=== PATIENT | male | born 1940 | race Caucasian/White ===

== ENCOUNTER 2016-08-19 07:38 | Day surgery (SDC) | payer MEDICARE, BC ==
[2016-08-19] MEDS ORDERED: fentaNYL 100 MCG/2 ML SDV ONE (08:01)
[2016-08-19] MEDS ORDERED: Propofol 200 MG/20 ML SDV ONE (08:01)
[2016-08-19] MEDS ORDERED: Lactated Ringers 1,000 ML IV SCH (08:15)
[2016-08-19] MEDS ORDERED: Ondansetron 4 MG/2 ML SDV ONE (08:59)
[2016-08-19 10:52] VITALS: BP 128/70
--- NOTE | 2016-08-20 07:31 | OR ---
DATE OF PROCEDURE: 08/19/2016 PREOPERATIVE DIAGNOSES: History of adenomatous colon polyps. POSTOPERATIVE DIAGNOSIS: Diverticulosis, four colon polyps, history of adenomatous colon polyps. PROCEDURE: Colonoscopy to the cecum with biopsy resection of distal transverse colon polyps, splenic flexure colon polyp and snare cautery polypectomy of rectal polyp. ANESTHESIA: IV anesthesia with monitored anesthesia care. INDICATION: This 75-year-old white male is referred for a colonoscopy because of a history of adenomatous colon polyps. His last colonoscopic exam was done about three years ago in [place]. I counseled him for a colonoscopy with possible biopsy and/or polypectomy including risks and alternatives, and he gave his informed consent to proceed. DESCRIPTION OF PROCEDURE: The patient was placed in the left lateral decubitus position. IV anesthesia was administered by the Anesthesia Service. Time-out was held. A rectal exam was performed, which was unremarkable except for an absent prostate. The flexible video Olympus colonoscope was introduced through his anus, up his rectum, and out his colon all the way to the cecum. En route, we saw multiple left-sided diverticula. There was no bleeding or inflammation associated with any of them. Also en route, in the transverse colon, we saw a small polyp, which was removed with the biopsy forceps. The scope was then slowly withdrawn examining the mucosa throughout. In the distal transverse colon, we saw another small polyp which was removed with the biopsy forceps. In the area of the splenic flexure, another small polyp was seen, which was removed with the biopsy forceps. No other additional lesions were noted until we reached the rectum. Here, a larger polyp was seen. This was removed with a snare. This involved placing the snare about its base, elevating it up away from the bowel wall, and applying electrocautery as the polyp was amputated. The polyp was aspirated through the scope and captured in a polyp trap. The scope was retroflexed with the distal rectum appearing unremarkable. The scope was straightened and removed. He tolerated the procedure well. Otilio Alex MD /[id number]
== END 2016-08-19 11:10 | disposition home or self-care (01) ==
LOC: JP.SDS 07:38
PROVIDERS: ATTEND Surgery
PROC: 0DBP8ZZ Excision of Rectum, Via Natural or Artificial Opening Endoscopic (ICD-10-PCS; principal; 2016-08-19)
PROC: 0DBL8ZZ Excision of Transverse Colon, Via Natural or Artificial Opening Endoscopic (ICD-10-PCS; 2016-08-19)
DX: Z86.010 Personal history of colon polyps (principal); K57.30 Diverticulosis of large intestine without perforation or abscess without bleeding; D12.3 Benign neoplasm of transverse colon; D12.7 Benign neoplasm of rectosigmoid junction; D12.4 Benign neoplasm of descending colon
CPT/HCPCS: 45380; 45385; J2405; J2704; J3010; J7120; 88305

== ENCOUNTER 2017-04-05 00:38 | Observation (INO) | payer MEDICARE, BC ==
[2017-04-05] MEDS ORDERED: Acetaminophen 325 MG Tab PO ONE (01:00)
[2017-04-05] MEDS ORDERED: Sodium Chloride 0.9% 1,000 ML IV SCH ×3 (01:00→02:15)
[2017-04-05] MEDS: Sodium Chloride 0.9% 1,000 ML IV SCH ×2 (01:02→04:48)
--- NOTE | 2017-04-05 02:11 | EDM.PDOC ---
ED HPI GENERAL MEDICAL PROBLEM - General Chief Complaint: Fever Stated Complaint: SOB VIA [place] Time Seen by Provider: 04/05/17 02:06 Source of Information: Reports: Patient History Limitations: Reports: No Limitations - History of Present Illness Onset: Today Duration: Hour(s):, Other (shaking chills. ) Location: Reports: Generalized Associated Symptoms: Reports: Fever/Chills, Nausea/Vomiting, Other (Pt developed a sudden onset of shaking chills, sob and body aches. ) Treatments [employer]: Reports: Aspirin, IV/IO, Other (see below) Other Treatments [employer]: zofran Abdomen Pain Score (Numeric/FACES): 1 - Related Data Allergies Allergy/AdvReac Type Severity Reaction Status Date / Time hydromorphone [From Dilaudid] AdvReac Nausea and Verified 04/05/17 01:43 Vomiting morphine AdvReac Nausea and Verified 04/05/17 01:43 Vomiting Home Meds: Home Meds Lisinopril [Prinivil] 20 mg PO BEDTIME 04/10/14 [History] Pantoprazole Sodium [Protonix] 40 mg PO DAILY #30 tablet. 08/27/15 [Rx] metroNIDAZOLE [metroNIDAZOLE 0.75% Gel] 1 dose TOP BID 08/17/16 [History] Potassium Citrate [Potassium Citrate ER] 10 meq PO DAILY 04/05/17 [History] Past Medical History HEENT History: Reports: Cataract, Impaired Vision, Otitis Media, Sinusitis Cardiovascular History: Reports: Hypertension Respiratory History: Reports: None Gastrointestinal History: Reports: Cholelithiasis, Diverticulosis, GERD, Hiatal Hernia Genitourinary History: Reports: Prostate Disorder, Renal Calculus Musculoskeletal History: Reports: None Neurological History: Reports: None Psychiatric History: Reports: None Endocrine/Metabolic History: Reports: Obesity/BMI 30+ Hematologic History: Reports: None Immunologic History: Reports: None Oncologic (Cancer) History: Reports: Basal Cell Carcinoma, Prostate, Other (See Below) Other Oncologic History: skin Dermatologic History: Reports: Benign Melanoma, Melanoma, Other (See Below) Other Dermatologic History: skin ca basal - Infectious Disease History Infectious Disease History: Reports: Chicken Pox, Measles - Past Surgical History HEENT Surgical History: Reports: Cataract Surgery, Other (See Below) Cardiovascular Surgical History: Reports: None Respiratory Surgical History: Reports: None Male Surgical History: Reports: Kidney Stone Extraction, Prostatectomy, Renal Calculus Endocrine Surgical History: Reports: None Neurological Surgical History: Reports: None Musculoskeletal Surgical History: Reports: None Dermatological Surgical History: Reports: Skin Biopsy Social & Family History - Family History Family Medical History: Noncontributory : Reports: Renal Calculus - Tobacco Use Smoking Status *Q: Former Smoker Years of Tobacco use: 25 Packs/Tins Daily: 0.5 Used Tobacco, but Quit: Yes Month Tobacco Last Used: 1987 Second Hand Smoke Exposure: No - Caffeine Use Caffeine Use: Reports: Coffee, Soda - Alcohol Use Days Per Week of Alcohol Use: 5 Number of Drinks Per Day: 1 Total Drinks Per Week: 5 - Recreational Drug Use Recreational Drug Use: No ED ROS GENERAL - Review of Systems Review Of Systems: See Below Constitutional: Reports: Fever, Chills, Malaise HEENT: Reports: No Symptoms Respiratory: Reports: Shortness of Breath Cardiovascular: Reports: No Symptoms Endocrine: Reports: No Symptoms GI/Abdominal: Reports: Nausea, Vomiting : Reports: No Symptoms ED EXAM, SEPSIS - Physical Exam Exam: See Below Text/Narrative:: pt developed a sudden onset of shaking chills sob and generalized weakness. Exam Limited By: No Limitations General Appearance: Alert, Moderate Distress Ears: Normal TMs Nose: Normal Inspection Throat/Mouth: Normal Inspection Head: Atraumatic Neck: Normal Inspection Respiratory/Chest: No Respiratory Distress Cardiovascular: Regular Rate, Rhythm, Tachycardia GI/Abdominal Exam: Soft, Non-Tender (Male) Exam: Deferred Rectal (Males) Exam: Deferred Back: Normal Inspection Extremities: Normal Inspection Neurological: Alert, Oriented, Normal Cognition Psychiatric: Normal Affect Course - Vital Signs Last Recorded V/S: Last Vital Signs Temp 36.7 C 04/05/17 12:00 Pulse 62 04/05/17 16:00 Resp 18 04/05/17 16:00 BP 86/58 L 04/05/17 16:00 Pulse Ox 97 04/05/17 12:00 - Orders/Labs/Meds Orders: Active Orders 24 hr Category Date Time Status Chest 1V Frontal [CR] Stat Exams 04/05/17 00:52 Taken CULTURE BLOOD [BC] Urgent Lab 04/05/17 01:02 Results CULTURE BLOOD [BC] Urgent Lab 04/05/17 01:02 Results CULTURE URINE [RM] Stat Lab 04/05/17 03:49 Received Blood Culture x2 Reflex Set [OM.PC] Urgent Oth 04/05/17 00:49 Ordered Medication Orders Acetaminophen (Tylenol) 650 mg PO Q6H PRN PRN Reason: Abdominal Pain Heparin Sodium (Porcine) (Heparin Sodium) 5,000 units SUBCUT Q8H [facility] Last Admin: 04/05/17 13:08 Dose: 5,000 units Piperacillin/Tazobactam/ (Dextrose 3.375 gm/ Premix) 50 mls @ 100 mls/hr IV Q6H [facility] Last Admin: 04/05/17 17:45 Dose: 100 mls/hr Admin: 04/05/17 12:15 Dose: 100 mls/hr Influenza Virus Vaccine (Fluzone High-Dose ) 180 mcg IM .ONCE ONE Stop: 04/06/17 11:01 Iopamidol (Isovue-300 (61%)) 150 ml IV . DIRECTED PRN PRN Reason: RADIOLOGY EXAM Stop: 04/06/17 04:45 Last Admin: 04/05/17 05:06 Dose: 150 ml Ondansetron HCl (Zofran) 4 mg IV Q4H PRN PRN Reason: Nausea/Vomiting Pantoprazole Sodium (Protonix) 40 mg PO ACBREAKFAST [facility] Senna/Docusate Sodium (Senna Plus) 1 tab PO BID PRN PRN Reason: Constipation Sodium Chloride (Saline Flush) 10 ml FLUSH ONETIME PRN PRN Reason: per radiology protocol Last Admin: 04/05/17 13:09 Dose: 10 ml Admin: 04/05/17 05:06 Dose: 10 ml Labs: Laboratory Tests 04/05/17 04/05/17 04/05/17 Range/Units 01:00 01:02 01:02 WBC 7.7 (4.5-11.0) K/uL RBC 4.92 (4.30-5.90) M/uL Hgb 15.4 H (12.0-15.0) g/dL Hct 46.8 (40.0-54.0) % MCV 95 (80-98) fL MCH 31 (27-31) pg MCHC 33 (32-36) % Plt Count 168 (150-400) K/uL Neut % (Auto) 96 H (36-66) % Lymph % (Auto) 2 L (24-44) % [place] % (Auto) 2 (2-6) % Eos % (Auto) 0 L (2-4) % Baso % (Auto) 0 (0-1) % Puncture Site Rt brachial ABG pH 7.462 H (7.350-7.450) ABG pCO2 29.0 L (35.0-42.0) mmHg ABG pO2 81.2 (75.0-100.0) mmHg ABG HCO3 20.4 L (22.0-26.0) mmol/L ABG Total CO2 17.5 L (23.0-27.0) mmol/L ABG O2 Saturation 97.0 (95.0-98.0) % ABG O2 Content 19.9 (15.0-23.0) %vol ABG Base Excess -1.7 mm/L ABG Hemoglobin 14.8 (13.5-18.0) g/dL ABG Oxyhemoglobin 95.4 % ABG Carboxyhemoglobin 1.1 (0.0-1.6) % ABG Methemoglobin 0.6 % Huy Test Not performed O2 Delivery Device Room air Sodium 144 (140-148) mmol/L Potassium 4.4 (3.6-5.2) mmol/L Chloride 109 H (100-108) mmol/L Carbon Dioxide 26 (21-32) mmol/L Anion Gap 13.4 (5.0-14.0) mmol/L BUN 19 H (7-18) mg/dL Creatinine 1.3 (0.8-1.3) mg/dL Est Cr Clr Drug Dosing 58.68 mL/min Estimated GFR (MDRD) 54 L (>60) Glucose 128 H (74-106) mg/dL Lactic Acid (0.4-2.0) mmol/L Calcium 8.2 L (8.5-10.1) mg/dL Total Bilirubin 0.6 (0.2-1.0) mg/dL AST 147 H D (15-37) U/L ALT 162 H (12-78) U/L Alkaline Phosphatase 122 H (46-116) U/L NT-Pro-B Natriuret Pep (5-450) pg/mL Total Protein 6.2 L (6.4-8.2) g/dL Albumin 3.0 L (3.4-5.0) g/dL Globulin 3.2 (2.3-3.5) g/dL Albumin/Globulin Ratio 0.9 L (1.2-2.2) Lipase (73-393) U/L Urine Color Urine Appearance Urine pH (4.5-8.0) Ur Specific [place] (1.008-1.030) Urine Protein (NEGATIVE) mg/dL Urine Glucose (UA) (NEGATIVE) mg/dL Urine Ketones (NEGATIVE) mg/dL Urine Occult Blood (NEGATIVE) Urine Nitrite (NEGAITVE) Urine Bilirubin (NEGATIVE) Urine Urobilinogen (NORMAL) mg/dL Ur Leukocyte Esterase (NEGATIVE) Urine RBC (0-5) Urine WBC (0-5) Ur Epithelial Cells Amorphous Sediment Urine Bacteria Urine Mucus 04/05/17 04/05/17 04/05/17 Range/Units 01:02 01:52 02:13 WBC (4.5-11.0) K/uL RBC (4.30-5.90) M/uL Hgb (12.0-15.0) g/dL Hct (40.0-54.0) % MCV (80-98) fL MCH (27-31) pg MCHC (32-36) % Plt Count (150-400) K/uL Neut % (Auto) (36-66) % Lymph % (Auto) (24-44) % [place] % (Auto) (2-6) % Eos % (Auto) (2-4) % Baso % (Auto) (0-1) % Puncture Site ABG pH (7.350-7.450) ABG pCO2 (35.0-42.0) mmHg ABG pO2 (75.0-100.0) mmHg ABG HCO3 (22.0-26.0) mmol/L ABG Total CO2 (23.0-27.0) mmol/L ABG O2 Saturation (95.0-98.0) % ABG O2 Content (15.0-23.0) %vol ABG Base Excess mm/L ABG Hemoglobin (13.5-18.0) g/dL ABG Oxyhemoglobin % ABG Carboxyhemoglobin (0.0-1.6) % ABG Methemoglobin % Huy Test O2 Delivery Device Sodium (140-148) mmol/L Potassium (3.6-5.2) mmol/L Chloride (100-108) mmol/L Carbon Dioxide (21-32) mmol/L Anion Gap (5.0-14.0) mmol/L BUN (7-18) mg/dL Creatinine (0.8-1.3) mg/dL Est Cr Clr Drug Dosing mL/min Estimated GFR (MDRD) (>60) Glucose (74-106) mg/dL Lactic Acid 2.0 (0.4-2.0) mmol/L Calcium (8.5-10.1) mg/dL Total Bilirubin (0.2-1.0) mg/dL AST (15-37) U/L ALT (12-78) U/L Alkaline Phosphatase (46-116) U/L NT-Pro-B Natriuret Pep 65 (5-450) pg/mL Total Protein (6.4-8.2) g/dL Albumin (3.4-5.0) g/dL Globulin (2.3-3.5) g/dL Albumin/Globulin Ratio (1.2-2.2) Lipase (73-393) U/L Urine Color Yellow Urine Appearance Clear Urine pH 5.0 (4.5-8.0) Ur Specific [place] 1.015 (1.008-1.030) Urine Protein Negative (NEGATIVE) mg/dL Urine Glucose (UA) Normal (NEGATIVE) mg/dL Urine Ketones Negative (NEGATIVE) mg/dL Urine Occult Blood Negative (NEGATIVE) Urine Nitrite Negative (NEGAITVE) Urine Bilirubin Negative (NEGATIVE) Urine Urobilinogen Normal (NORMAL) mg/dL Ur Leukocyte Esterase Negative (NEGATIVE) Urine RBC Not seen (0-5) Urine WBC 0-5 (0-5) Ur Epithelial Cells Not seen Amorphous Sediment Not seen Urine Bacteria Not seen Urine Mucus Few 04/05/17 Range/Units 02:53 WBC (4.5-11.0) K/uL RBC (4.30-5.90) M/uL Hgb (12.0-15.0) g/dL Hct (40.0-54.0) % MCV (80-98) fL MCH (27-31) pg MCHC (32-36) % Plt Count (150-400) K/uL Neut % (Auto) (36-66) % Lymph % (Auto) (24-44) % [place] % (Auto) (2-6) % Eos % (Auto) (2-4) % Baso % (Auto) (0-1) % Puncture Site ABG pH (7.350-7.450) ABG pCO2 (35.0-42.0) mmHg ABG pO2 (75.0-100.0) mmHg ABG HCO3 (22.0-26.0) mmol/L ABG Total CO2 (23.0-27.0) mmol/L ABG O2 Saturation (95.0-98.0) % ABG O2 Content (15.0-23.0) %vol ABG Base Excess mm/L ABG Hemoglobin (13.5-18.0) g/dL ABG Oxyhemoglobin % ABG Carboxyhemoglobin (0.0-1.6) % ABG Methemoglobin % Huy Test O2 Delivery Device Sodium (140-148) mmol/L Potassium (3.6-5.2) mmol/L Chloride (100-108) mmol/L Carbon Dioxide (21-32) mmol/L Anion Gap (5.0-14.0) mmol/L BUN (7-18) mg/dL Creatinine (0.8-1.3) mg/dL Est Cr Clr Drug Dosing mL/min Estimated GFR (MDRD) (>60) Glucose (74-106) mg/dL Lactic Acid (0.4-2.0) mmol/L Calcium (8.5-10.1) mg/dL Total Bilirubin (0.2-1.0) mg/dL AST (15-37) U/L ALT (12-78) U/L Alkaline Phosphatase (46-116) U/L NT-Pro-B Natriuret Pep (5-450) pg/mL Total Protein (6.4-8.2) g/dL Albumin (3.4-5.0) g/dL Globulin (2.3-3.5) g/dL Albumin/Globulin Ratio (1.2-2.2) Lipase 91 (73-393) U/L Urine Color Urine Appearance Urine pH (4.5-8.0) Ur Specific [place] (1.008-1.030) Urine Protein (NEGATIVE) mg/dL Urine Glucose (UA) (NEGATIVE) mg/dL Urine Ketones (NEGATIVE) mg/dL Urine Occult Blood (NEGATIVE) Urine Nitrite (NEGAITVE) Urine Bilirubin (NEGATIVE) Urine Urobilinogen (NORMAL) mg/dL Ur Leukocyte Esterase (NEGATIVE) Urine RBC (0-5) Urine WBC (0-5) Ur Epithelial Cells Amorphous Sediment Urine Bacteria Urine Mucus Meds: Medications Generic Name Dose Route Start Last Admin Trade Name Brittani PRN Reason Stop Dose Admin Acetaminophen 650 mg 04/05/17 04:26 Tylenol PO Q6H PRN Abdominal Pain Heparin Sodium (Porcine) 5,000 units 04/05/17 14:00 04/05/17 13:08 Heparin Sodium SUBCUT 5,000 units Q8H REGGIE Administration Piperacillin/Tazobactam/ 50 mls @ 100 mls/hr 04/05/17 12:00 04/05/17 17:45 Dextrose 3.375 gm/ Premix IV 100 mls/hr Q6H REGGIE Administration Influenza Virus Vaccine 180 mcg 04/06/17 11:00 Fluzone High-Dose 2017-18 IM 04/06/17 11:01 .ONCE ONE Iopamidol 150 ml 04/05/17 04:44 04/05/17 05:06 Isovue-300 (61%) IV 04/06/17 04:45 150 ml . DIRECTED PRN Administration RADIOLOGY EXAM Ondansetron HCl 4 mg 04/05/17 04:03 Zofran IV Q4H PRN Nausea/Vomiting Pantoprazole Sodium 40 mg 04/06/17 07:30 Protonix PO ACBREAKFAST REGGIE Senna/Docusate Sodium 1 tab 04/05/17 04:03 Senna Plus PO BID PRN Constipation Sodium Chloride 10 ml 04/05/17 04:44 04/05/17 13:09 Saline Flush FLUSH 10 ml ONETIME PRN Administration per radiology protocol Discontinued Medications Generic Name Dose Route Start Last Admin Trade Name Brittani PRN Reason Stop Dose Admin Acetaminophen 1,000 mg 04/05/17 01:00 04/05/17 01:06 Tylenol PO 04/05/17 01:01 1,000 mg NOW ONE Administration Heparin Sodium (Porcine) 5,000 units 04/05/17 05:00 04/05/17 06:09 Heparin Sodium SUBCUT 5,000 units Q8H REGGIE Administration Hydromorphone HCl 0.5 mg 04/05/17 04:29 Dilaudid IVPUSH Q4H PRN Pain (moderate 4-6) Sodium Chloride 1,000 mls @ 150 mls/hr 04/05/17 01:00 04/05/17 04:48 Normal Saline IV 150 mls/hr ASDIRECTED REGGIE Administration Sodium Chloride 1,000 mls @ 999 mls/hr 04/05/17 01:00 04/05/17 01:03 Normal Saline IV 999 mls/hr ASDIRECTED REGGIE Administration Sodium Chloride 1,000 mls @ 500 mls/hr 04/05/17 02:15 04/05/17 02:09 Normal Saline IV 500 mls/hr ASDIRECTED REGGIE Administration Sodium Chloride 1,000 mls @ 500 mls/hr 04/05/17 02:15 Normal Saline IV ASDIRECTED REGGIE Piperacillin Sod/Tazobactam 50 mls @ 100 mls/hr 04/05/17 03:00 04/05/17 11:57 Sod 3.375 gm/ Sodium Chloride IV Not Given Q6H REGGIE Ciprofloxacin/Dextrose 400 mg/ 200 mls @ 200 mls/hr 04/05/17 05:00 04/05/17 06:09 Premix IV 200 mls/hr Q12H REGGIE Administration Metronidazole 500 mg/ Premix 100 mls @ 100 mls/hr 04/05/17 12:00 IV Q8H REGGIE Metronidazole 500 mg/ Premix 100 mls @ 100 mls/hr 04/05/17 05:00 04/05/17 04: 46 IV 04/05/17 05:59 100 mls/hr ONETIME ONE Administration Sodium Chloride 85 mls @ 3.5 mls/sec 04/05/17 04:45 04/05/17 05:06 Normal Saline IV 04/05/17 10:00 3.5 mls/sec ASDIRECTED REGGIE Administration Influenza Virus Vaccine 1 each 04/06/17 09:00 Pharmacy To Dose - Influenza Vaccine IM 04/06/17 09:01 ONETIME ONE Influenza Virus Vaccine 180 mcg 04/05/17 10:00 04/05/17 14:03 Fluzone High-Dose 2017-18 IM 04/05/17 10:01 Not Given .ONCE ONE Morphine Sulfate 2 mg 04/05/17 04:03 Morphine IVPUSH Q2H PRN Pain (severe 7-10) Pantoprazole Sodium 40 mg 04/05/17 07:30 04/05/17 08:55 Protonix Iv IVPUSH 40 mg ACBREAKFAST REGGIE Administration - Re-Assessments/Exams Free Text/Narrative Re-Assessment/Exam: 04/05/17 02:55 pt did not hav a infected urine. His wbc is wnl. Departure - Departure Time of Disposition: 16:00 Disposition: Refer to Observation Condition: Fair Clinical Impression: Sepsis, Elevated liver enzymes - Discharge Information - My Orders Last 24 Hours: My Active Orders 04/05/17 00:49 Blood Culture x2 Reflex Set [OM.PC] Urgent 04/05/17 00:52 Chest 1V Frontal [CR] Stat 04/05/17 01:02 CULTURE BLOOD [BC] Urgent CULTURE BLOOD [BC] Urgent 04/05/17 03:49 CULTURE URINE [RM] Stat - Assessment/Plan Last 24 Hours: My Active Orders 04/05/17 00:49 Blood Culture x2 Reflex Set [OM.PC] Urgent 04/05/17 00:52 Chest 1V Frontal [CR] Stat 04/05/17 01:02 CULTURE BLOOD [BC] Urgent CULTURE BLOOD [BC] Urgent 04/05/17 03:49 CULTURE URINE [RM] Stat
[2017-04-05] MEDS: Piperacillin/Tazobactam 3.375 GM in Sodium Chloride 0.9% 50 ML IV SCH ×2 (03:16→11:57)
[2017-04-05] MEDS ORDERED: Morphine 2 MG/ML Syringe IVPUSH PRN (04:03)
[2017-04-05] MEDS ORDERED: Ondansetron 4 MG/2 ML SDV IV PRN (04:03)
[2017-04-05] MEDS ORDERED: Acetaminophen 325 MG Tab PO PRN (04:26)
--- NOTE | 2017-04-05 04:26 | PCM.HP ---
H&P History of Present Illness - General Date of Service: 04/05/17 Admit Problem/Dx: Admission Diagnosis/Problem Admission Diagnosis/Problem Abdominal pain Source of Information: Patient History Limitations: Reports: No Limitations - History of Present Illness Initial Comments - Free Text/Narative: 75-year-old male with past medical history of hypertension on lisinopril medication, potassium supplementation, recurrent right upper quadrant pain status post cholecystectomy 18 months ago, GERD came to the ER with the complaining of epigastric pain which started6 PM yesterday. Patient states that the pain was 7-8/10 in intensity, patient took oxycodone medication which helped him. Patient reports that he has nausea, associated with 2 episodes of vomiting and fever associated with the chills.With these complaints patient came to the ER. In the ER patient had lab test, x-ray which showed lactic acid 2.0 and the chest x-ray is within normal limits. Patient denies any chest pain , breathing difficulty, headaches, dizziness, lightheadedness, palpitations, orthopnea, PND or pedal edema. Patient is a nonsmoker. Patient reports that he has recurrent right upper quadrant and epigastric pains every 15-20 days since the surgery. Patient denies any blood in the stool, or disturbance in bowel, urinary habits. Patient diagnosed as SIRS and suspected sepsis received fluid resuscitation in the ED and admitted as observation status. Patient CODE STATUS is full code. Other review of systems are not significant - Related Data Allergies/Adverse Reactions: Allergies Allergy/AdvReac Type Severity Reaction Status Date / Time hydromorphone [From Dilaudid] AdvReac Nausea and Verified 04/05/17 01:43 Vomiting morphine AdvReac Nausea and Verified 04/05/17 01:43 Vomiting Home Medications: Home Meds Lisinopril [Prinivil] 20 mg PO BEDTIME 04/10/14 [History] Pantoprazole Sodium [Protonix] 40 mg PO DAILY #30 tablet. 08/27/15 [Rx] metroNIDAZOLE [metroNIDAZOLE 0.75% Gel] 1 dose TOP BID 08/17/16 [History] Potassium Citrate [Potassium Citrate ER] 10 meq PO DAILY 04/05/17 [History] Past Medical History HEENT History: Reports: Cataract, Impaired Vision, Otitis Media, Sinusitis Cardiovascular History: Reports: Hypertension Respiratory History: Reports: None Gastrointestinal History: Reports: Cholelithiasis, Diverticulosis, GERD, Hiatal Hernia Genitourinary History: Reports: Prostate Disorder, Renal Calculus Musculoskeletal History: Reports: None Neurological History: Reports: None Psychiatric History: Reports: None Endocrine/Metabolic History: Reports: Obesity/BMI 30+ Hematologic History: Reports: None Immunologic History: Reports: None Oncologic (Cancer) History: Reports: Basal Cell Carcinoma, Prostate, Other (See Below) Other Oncologic History: skin Dermatologic History: Reports: Benign Melanoma, Melanoma, Other (See Below) Other Dermatologic History: skin ca basal - Infectious Disease History Infectious Disease History: Reports: Chicken Pox, Measles - Past Surgical History HEENT Surgical History: Reports: Cataract Surgery, Other (See Below) Cardiovascular Surgical History: Reports: None Respiratory Surgical History: Reports: None Male Surgical History: Reports: Kidney Stone Extraction, Prostatectomy, Renal Calculus Endocrine Surgical History: Reports: None Neurological Surgical History: Reports: None Musculoskeletal Surgical History: Reports: None Dermatological Surgical History: Reports: Skin Biopsy Social & Family History - Family History Family Medical History: Noncontributory : Reports: Renal Calculus - Tobacco Use Smoking Status *Q: Former Smoker Years of Tobacco use: 25 Packs/Tins Daily: 0.5 Used Tobacco, but Quit: Yes Month Tobacco Last Used: 1987 Second Hand Smoke Exposure: No - Caffeine Use Caffeine Use: Reports: Coffee, Soda - Alcohol Use Days Per Week of Alcohol Use: 5 Number of Drinks Per Day: 1 Total Drinks Per Week: 5 - Recreational Drug Use Recreational Drug Use: No H&P Review of Systems - Review of Systems: Review Of Systems: See Below General: Reports: Fever, Chills, Malaise HEENT: Denies: Contact Lenses, Dysphasia, Ear Pain Pulmonary: Denies: Shortness of Breath, Wheezing Cardiovascular: Denies: Chest Pain, Palpitations, Dyspnea on Exertion Gastrointestinal: Reports: Abdominal Pain, Nausea, Vomiting. Denies: Anorexia, Black Stool, Bloody Stool, Constipation, Diarrhea, Difficulty Swallowing, Distension, Melena Genitourinary: Denies: Dysuria, Frequency, Burning Musculoskeletal: Denies: Neck Pain, Shoulder Pain Skin: Denies: Cyanosis, Jaundice Psychiatric: Denies: Confusion, Depression, Mood Lability Neurological: Denies: Confusion, Dizziness, Headache Hematologic/Lymphatic: Denies: Anemia, Easy Bleeding Exam - Exam Exam: See Below - Vital Signs Vital Signs: Last Vital Signs Temp 36.6 C 04/05/17 04:06 Pulse 98 04/05/17 04:06 Resp 14 04/05/17 04:06 BP 142/76 H 04/05/17 04:06 Pulse Ox 95 04/05/17 04:06 Weight: 113.398 kg - Exam General: Alert, Oriented Neck: Supple Lungs: Clear to Auscultation, Normal Respiratory Effort Cardiovascular: Regular Rate, Regular Rhythm, Normal S1, Normal S2 GI/Abdominal Exam: Normal Bowel Sounds, Soft, No Distention. No: Non-Tender, Distended, Guarding, Rigid, Rebound (Male) Exam: No Hernia Rectal (Males) Exam: Normal Exam, Normal Rectal Tone Back Exam: Normal Inspection, Full Range of Motion Extremities: Normal Inspection, Normal Range of Motion Skin: Warm, Intact Neurological: Cranial Nerves Intact Neuro Extensive - Mental Status: Alert, Oriented x3 Psychiatric: Alert, Normal Affect - Patient Data Lab Results Last 24 hrs: Laboratory Results - last 24 hr 04/05/17 04/05/17 04/05/17 Range/Units 01:00 01:02 01:02 WBC 7.7 (4.5-11.0) K/uL RBC 4.92 (4.30-5.90) M/uL Hgb 15.4 H (12.0-15.0) g/dL Hct 46.8 (40.0-54.0) % MCV 95 (80-98) fL MCH 31 (27-31) pg MCHC 33 (32-36) % Plt Count 168 (150-400) K/uL Neut % (Auto) 96 H (36-66) % Lymph % (Auto) 2 L (24-44) % [place] % (Auto) 2 (2-6) % Eos % (Auto) 0 L (2-4) % Baso % (Auto) 0 (0-1) % Puncture Site Rt brachial ABG pH 7.462 H (7.350-7.450) ABG pCO2 29.0 L (35.0-42.0) mmHg ABG pO2 81.2 (75.0-100.0) mmHg ABG HCO3 20.4 L (22.0-26.0) mmol/L ABG Total CO2 17.5 L (23.0-27.0) mmol/L ABG O2 Saturation 97.0 (95.0-98.0) % ABG O2 Content 19.9 (15.0-23.0) %vol ABG Base Excess -1.7 mm/L ABG Hemoglobin 14.8 (13.5-18.0) g/dL ABG Oxyhemoglobin 95.4 % ABG Carboxyhemoglobin 1.1 (0.0-1.6) % ABG Methemoglobin 0.6 % Huy Test Not performed O2 Delivery Device Room air Sodium 144 (140-148) mmol/L Potassium 4.4 (3.6-5.2) mmol/L Chloride 109 H (100-108) mmol/L Carbon Dioxide 26 (21-32) mmol/L Anion Gap 13.4 (5.0-14.0) mmol/L BUN 19 H (7-18) mg/dL Creatinine 1.3 (0.8-1.3) mg/dL Est Cr Clr Drug Dosing 58.68 mL/min Estimated GFR (MDRD) 54 L (>60) Glucose 128 H (74-106) mg/dL Lactic Acid (0.4-2.0) mmol/L Calcium 8.2 L (8.5-10.1) mg/dL Total Bilirubin 0.6 (0.2-1.0) mg/dL AST 147 H D (15-37) U/L ALT 162 H (12-78) U/L Alkaline Phosphatase 122 H (46-116) U/L NT-Pro-B Natriuret Pep (5-450) pg/mL Total Protein 6.2 L (6.4-8.2) g/dL Albumin 3.0 L (3.4-5.0) g/dL Globulin 3.2 (2.3-3.5) g/dL Albumin/Globulin Ratio 0.9 L (1.2-2.2) Lipase (73-393) U/L Urine Color Urine Appearance Urine pH (4.5-8.0) Ur Specific [place] (1.008-1.030) Urine Protein (NEGATIVE) mg/dL Urine Glucose (UA) (NEGATIVE) mg/dL Urine Ketones (NEGATIVE) mg/dL Urine Occult Blood (NEGATIVE) Urine Nitrite (NEGAITVE) Urine Bilirubin (NEGATIVE) Urine Urobilinogen (NORMAL) mg/dL Ur Leukocyte Esterase (NEGATIVE) Urine RBC (0-5) Urine WBC (0-5) Ur Epithelial Cells Amorphous Sediment Urine Bacteria Urine Mucus 04/05/17 04/05/17 04/05/17 Range/Units 01:02 01:52 02:13 WBC (4.5-11.0) K/uL RBC (4.30-5.90) M/uL Hgb (12.0-15.0) g/dL Hct (40.0-54.0) % MCV (80-98) fL MCH (27-31) pg MCHC (32-36) % Plt Count (150-400) K/uL Neut % (Auto) (36-66) % Lymph % (Auto) (24-44) % [place] % (Auto) (2-6) % Eos % (Auto) (2-4) % Baso % (Auto) (0-1) % Puncture Site ABG pH (7.350-7.450) ABG pCO2 (35.0-42.0) mmHg ABG pO2 (75.0-100.0) mmHg ABG HCO3 (22.0-26.0) mmol/L ABG Total CO2 (23.0-27.0) mmol/L ABG O2 Saturation (95.0-98.0) % ABG O2 Content (15.0-23.0) %vol ABG Base Excess mm/L ABG Hemoglobin (13.5-18.0) g/dL ABG Oxyhemoglobin % ABG Carboxyhemoglobin (0.0-1.6) % ABG Methemoglobin % Huy Test O2 Delivery Device Sodium (140-148) mmol/L Potassium (3.6-5.2) mmol/L Chloride (100-108) mmol/L Carbon Dioxide (21-32) mmol/L Anion Gap (5.0-14.0) mmol/L BUN (7-18) mg/dL Creatinine (0.8-1.3) mg/dL Est Cr Clr Drug Dosing mL/min Estimated GFR (MDRD) (>60) Glucose (74-106) mg/dL Lactic Acid 2.0 (0.4-2.0) mmol/L Calcium (8.5-10.1) mg/dL Total Bilirubin (0.2-1.0) mg/dL AST (15-37) U/L ALT (12-78) U/L Alkaline Phosphatase (46-116) U/L NT-Pro-B Natriuret Pep 65 (5-450) pg/mL Total Protein (6.4-8.2) g/dL Albumin (3.4-5.0) g/dL Globulin (2.3-3.5) g/dL Albumin/Globulin Ratio (1.2-2.2) Lipase (73-393) U/L Urine Color Yellow Urine Appearance Clear Urine pH 5.0 (4.5-8.0) Ur Specific [place] 1.015 (1.008-1.030) Urine Protein Negative (NEGATIVE) mg/dL Urine Glucose (UA) Normal (NEGATIVE) mg/dL Urine Ketones Negative (NEGATIVE) mg/dL Urine Occult Blood Negative (NEGATIVE) Urine Nitrite Negative (NEGAITVE) Urine Bilirubin Negative (NEGATIVE) Urine Urobilinogen Normal (NORMAL) mg/dL Ur Leukocyte Esterase Negative (NEGATIVE) Urine RBC Not seen (0-5) Urine WBC 0-5 (0-5) Ur Epithelial Cells Not seen Amorphous Sediment Not seen Urine Bacteria Not seen Urine Mucus Few 04/05/17 Range/Units 02:53 WBC (4.5-11.0) K/uL RBC (4.30-5.90) M/uL Hgb (12.0-15.0) g/dL Hct (40.0-54.0) % MCV (80-98) fL MCH (27-31) pg MCHC (32-36) % Plt Count (150-400) K/uL Neut % (Auto) (36-66) % Lymph % (Auto) (24-44) % [place] % (Auto) (2-6) % Eos % (Auto) (2-4) % Baso % (Auto) (0-1) % Puncture Site ABG pH (7.350-7.450) ABG pCO2 (35.0-42.0) mmHg ABG pO2 (75.0-100.0) mmHg ABG HCO3 (22.0-26.0) mmol/L ABG Total CO2 (23.0-27.0) mmol/L ABG O2 Saturation (95.0-98.0) % ABG O2 Content (15.0-23.0) %vol ABG Base Excess mm/L ABG Hemoglobin (13.5-18.0) g/dL ABG Oxyhemoglobin % ABG Carboxyhemoglobin (0.0-1.6) % ABG Methemoglobin % Huy Test O2 Delivery Device Sodium (140-148) mmol/L Potassium (3.6-5.2) mmol/L Chloride (100-108) mmol/L Carbon Dioxide (21-32) mmol/L Anion Gap (5.0-14.0) mmol/L BUN (7-18) mg/dL Creatinine (0.8-1.3) mg/dL Est Cr Clr Drug Dosing mL/min Estimated GFR (MDRD) (>60) Glucose (74-106) mg/dL Lactic Acid (0.4-2.0) mmol/L Calcium (8.5-10.1) mg/dL Total Bilirubin (0.2-1.0) mg/dL AST (15-37) U/L ALT (12-78) U/L Alkaline Phosphatase (46-116) U/L NT-Pro-B Natriuret Pep (5-450) pg/mL Total Protein (6.4-8.2) g/dL Albumin (3.4-5.0) g/dL Globulin (2.3-3.5) g/dL Albumin/Globulin Ratio (1.2-2.2) Lipase 91 (73-393) U/L Urine Color Urine Appearance Urine pH (4.5-8.0) Ur Specific [place] (1.008-1.030) Urine Protein (NEGATIVE) mg/dL Urine Glucose (UA) (NEGATIVE) mg/dL Urine Ketones (NEGATIVE) mg/dL Urine Occult Blood (NEGATIVE) Urine Nitrite (NEGAITVE) Urine Bilirubin (NEGATIVE) Urine Urobilinogen (NORMAL) mg/dL Ur Leukocyte Esterase (NEGATIVE) Urine RBC (0-5) Urine WBC (0-5) Ur Epithelial Cells Amorphous Sediment Urine Bacteria Urine Mucus Result Diagrams: 04/05/17 01:02 04/05/17 01:02 [place] Results Last 24 hrs: Microbiology 04/05/17 01:11 Influenza Type A Antigen Screen - Final Nasopharyngeal Swab - Nare, Right NEGATIVE INFLUENZA A VIRUS AG Influenza Type B Antigen Screen - Final NEGATIVE INFLUENZA B VIRUS AG *Q Meaningful Use (ADM) - VTE *Q VTE Criteria *Q: - Stroke *Q Stroke Criteria *Q: - AMI *Q AMI Criteria *Q: - Problem List (1) Abdominal pain SNOMED Code(s): 35913050 ICD Code: R10.9 - UNSPECIFIED ABDOMINAL PAIN Status: Acute Current Visit : Yes (2) SIRS (systemic inflammatory response syndrome) SNOMED Code(s): 962264486 ICD Code: R65.10 - SIRS OF NON-INFECTIOUS ORIGIN W/O ACUTE ORGAN DYSFUNCTION Status: Acute Current Visit: Yes (3) Fever and chills SNOMED Code(s): 325708002 ICD Code: R50.9 - FEVER, UNSPECIFIED Status: Acute Current Visit: Yes (4) S/P hernia repair SNOMED Code(s): 11688635832811 ICD Code: Z98.89 - OTHER SPECIFIED POSTPROCEDURAL STATES * DO NOT USE *; Z87.19 - PERSONAL HISTORY OF OTHER DISEASES OF THE DIGESTIVE SYSTEM Status: Acute Current Visit: No (5) Status post laparoscopic cholecystectomy SNOMED Code(s): 349363220, 760771503 ICD Code: Z90.49 - ACQUIRED ABSENCE OF OTHER SPECIFIED PARTS OF DIGESTIVE TRACT Status: Acute Current Visit: No (6) Hypertension SNOMED Code(s): 94295707 ICD Code: I10 - ESSENTIAL (PRIMARY) HYPERTENSION Status: Chronic Current Visit: No Qualifiers: Hypertension type: essential hypertension Qualified Code(s): I10 - Essential (primary) hypertension Problem List Initiated/Reviewed/Updated: Yes Orders Last 24hrs: Active Orders 24 hr Category Date Time Status Patient Status [ADT] Routine ADT 04/05/17 04:03 Ordered EKG Documentation Completion [RC] ASDIRECTED Care 04/05/17 04:11 Ordered Oxygen Therapy [RC] PRN Care 04/05/17 04:03 Ordered Pulse Oximetry [RC] CONTINUOUS Care 04/05/17 04:05 Ordered VTE/DVT Education [RC] Per Unit Routine Care 04/05/17 04:03 Ordered Vital Signs [RC] Q4H Care 04/05/17 04:03 Ordered Nothing per Oral Now Diet [DIET] Diet 04/05/17 Breakfast Ordered Abdomen Pelvis w Cont [CT] Stat Exams 04/05/17 04:19 Ordered CTA Abd Pelv w Cont [CT] Stat Exams 04/05/17 04:18 Stop Req Chest 1V Frontal [CR] Stat Exams 04/05/17 00:52 Taken CBC WITH AUTO DIFF [HEME] AM Lab 04/05/17 05:11 Ordered COMPREHENSIVE METABOLIC PN,CMP [CHEM] AM Lab 04/05/17 05:11 Ordered CULTURE BLOOD [BC] Urgent Lab 04/05/17 01:02 Received CULTURE BLOOD [BC] Urgent Lab 04/05/17 01:02 Received CULTURE URINE [RM] Stat Lab 04/05/17 03:49 Received MAGNESIUM [CHEM] Stat Lab 04/05/17 04:21 Ordered TROPONIN I [CHEM] Routine Lab 04/05/17 04:22 Ordered Ciprofloxacin in D5W [Cipro in D5W 400 MG/200 ML] 400 Med 04/05/17 04:30 Ordered mg Premix Bag 1 bag IV Q12H Docusate Sodium/Sennosides [Senna Plus] Med 04/05/17 04:03 Ordered 1 tab PO BID PRN Heparin Sodium Med 04/05/17 04:15 Ordered 5,000 units SUBCUT Q8H Ondansetron [Zofran] Med 04/05/17 04:03 Ordered 4 mg IV Q4H PRN Piperacillin/Tazobactam [Zosyn] 3.375 gm Med 04/05/17 03:00 Active Sodium Chloride 0.9% [Normal Saline] 50 ml IV Q6H Sodium Chloride 0.9% [Normal Saline] 1,000 ml Med 04/05/17 01:00 Active IV ASDIRECTED Sodium Chloride 0.9% [Normal Saline] 1,000 ml Med 04/05/17 01:00 Active IV ASDIRECTED Sodium Chloride 0.9% [Normal Saline] 1,000 ml Med 04/05/17 02:15 Active IV ASDIRECTED Sodium Chloride 0.9% [Normal Saline] 1,000 ml Med 04/05/17 02:15 Active IV ASDIRECTED metroNIDAZOLE/Normal Saline [Flagyl 500 MG in NS 100 ML Med 04/05/17 04:30 Ordered ] 500 mg Premix Bag 1 bag IV Q8H Blood Culture x2 Reflex Set [OM.PC] Urgent Oth 04/05/17 00:49 Ordered Resuscitation Status Routine Resus Stat 04/05/17 04:03 Ordered EKG 12 Lead [EK] Routine Ther 04/05/17 04:03 Ordered Medication Orders Heparin Sodium (Porcine) (Heparin Sodium) 5,000 units SUBCUT Q8H REGGIE Sodium Chloride (Normal Saline) 1,000 mls @ 150 mls/hr IV ASDIRECTED [facility] Last Admin: 04/05/17 01:02 Dose: 999 mls/hr Sodium Chloride (Normal Saline) 1,000 mls @ 999 mls/hr IV ASDIRECTED [facility] Last Admin: 04/05/17 01:03 Dose: 999 mls/hr Sodium Chloride (Normal Saline) 1,000 mls @ 500 mls/hr IV ASDIRECTED [facility] Last Admin: 04/05/17 02:09 Dose: 500 mls/hr Sodium Chloride (Normal Saline) 1,000 mls @ 500 mls/hr IV ASDIRECTED [facility] Piperacillin Sod/Tazobactam (Sod 3.375 gm/ Sodium Chloride) 50 mls @ 100 mls/ hr IV Q6H [facility] Last Admin: 04/05/17 03:16 Dose: 100 mls/hr Ciprofloxacin/Dextrose 400 mg/ (Premix) 200 mls @ 200 mls/hr IV Q12H [facility] Metronidazole 500 mg/ Premix 100 mls @ 100 mls/hr IV Q8H [facility] Ondansetron HCl (Zofran) 4 mg IV Q4H PRN PRN Reason: Nausea/Vomiting Senna/Docusate Sodium (Senna Plus) 1 tab PO BID PRN PRN Reason: Constipation Assessment/Plan Comment:: 76-year-old male with past medical history of GERD, hypertension came to the ED with the complaining of epigastric pain and diagnosed with SIRS and suspected SEPSIS and admitted in observation status (1) Abdominal pain (2) SIRS (systemic inflammatory response syndrome) (3) Fever and chills (4) S/P hernia repair (5) Status post laparoscopic cholecystectomy (6) Hypertension Unknown etiology Will get CT abdomen and pelvis with contrast Patient creatinine is 1.3. Baseline. Will give empiric antibiotics metronidazole and Cipro Will continue home blood pressure medications Maintenance IV fluids Nothing by mouth for now Repeat CBC, CMP tomorrow Diet nothing by mouth for now CODE STATUS full code DVT prophylaxis: Heparin 5000 units Every 8 hourly IV fluids normal saline 150 ml/hr GI prophylaxis pantoprazole 40 mg IV once daily
[2017-04-05] MEDS ORDERED: HYDROmorphone 0.5 MG/0.5 ML Syringe IVPUSH PRN (04:29)
[2017-04-05] MEDS ORDERED: metroNIDAZOLE/Normal Saline 500 MG in Premix Bag 1 BAG IV SCH ×2 (04:30→12:00)
[2017-04-05] MEDS ORDERED: Iopamidol 612 MG/ML 150 ML Bottle IV PRN (04:44)
[2017-04-05] MEDS ORDERED: metroNIDAZOLE/Normal Saline 500 MG in Premix Bag 1 BAG IV ONE (05:00)
[2017-04-05] MEDS ORDERED: Heparin Sodium 5,000 Units/ML Vial SUBCUT SCH (05:00)
[2017-04-05] MEDS ORDERED: Ciprofloxacin in D5W 400 MG in Premix Bag 1 BAG IV SCH ×2 (05:00)
[2017-04-05] MEDS: Sodium Chloride 0.9% 10 ML Syringe FLUSH PRN ×2 (05:06→13:09)
[2017-04-05] MEDS ORDERED: Pantoprazole 40 MG Vial IVPUSH SCH (07:30)
[2017-04-05] MEDS ORDERED: FLU Vacc TS 2017-18 (65yr UP)/PF 180 MCG/0.5 ML Syringe IM ONE (10:00)
[2017-04-05] MEDS: Piperacillin/Tazobactam/Dext 3.375 GM in Premix Bag 1 BAG IV SCH ×3 (12:15→23:22)
--- NOTE | 2017-04-05 12:40 | PCM.PN ---
- General Info Date of Service: 04/05/17 Subjective Update: Mr. Iglesias is a 76-year-old gentleman who is admitted early this morning with fever, early sepsis, and right upper quadrant abdominal pain. Heart rate was elevated as well as white blood cell count and he was felt to have a component of early sepsis, lactic acid level was within normal range. He status post cholecystectomy approximately 18 months ago and is reported intermittent episodes of similar symptoms although very brief duration. CT scan of the abdomen and pelvis shows evidence of biliary ductal dilatation with inflammation consistent with infection. There also was noted incidental finding of an area of inflammation/mass in the left kidney. Functional Status: Reports: Pain Controlled, Tolerating Diet, Ambulating - Review of Systems General: Reports: Fever, Weakness, Chills Pulmonary: Reports: No Symptoms Cardiovascular: Reports: No Symptoms Gastrointestinal: Reports: Abdominal Pain. Denies: Nausea, Vomiting Musculoskeletal: Reports: No Symptoms - Patient Data Vitals - Most Recent: Last Vital Signs Temp 98.0 F 04/05/17 12:00 Pulse 81 04/05/17 12:00 Resp 16 04/05/17 12:00 BP 120/61 04/05/17 12:00 Pulse Ox 97 04/05/17 12:00 Weight - Most Recent: 250 lb I&O - Last 24 Hours: Intake & Output 04/04/17 04/05/17 04/05/17 22:59 06:59 14:59 Intake Total 240 Output Total 800 Balance -560 Lab Results Last 24 Hours: Laboratory Results - last 24 hr 04/05/17 04/05/17 04/05/17 Range/Units 04:21 04:22 05:52 WBC 15.2 H (4.5-11.0) K/uL RBC 4.29 L (4.30-5.90) M/uL Hgb 13.5 (12.0-15.0) g/dL Hct 41.2 (40.0-54.0) % MCV 96 (80-98) fL MCH 32 H (27-31) pg MCHC 33 (32-36) % Plt Count 145 L (150-400) K/uL Neut % (Auto) 90 H (36-66) % Lymph % (Auto) 3 L (24-44) % [place] % (Auto) 8 H (2-6) % Eos % (Auto) 0 L (2-4) % Baso % (Auto) 0 (0-1) % Sodium (140-148) mmol/L Potassium (3.6-5.2) mmol/L Chloride (100-108) mmol/L Carbon Dioxide (21-32) mmol/L Anion Gap (5.0-14.0) mmol/L BUN (7-18) mg/dL Creatinine (0.8-1.3) mg/dL Est Cr Clr Drug Dosing mL/min Estimated GFR (MDRD) (>60) Glucose (74-106) mg/dL Calcium (8.5-10.1) mg/dL Magnesium 1.2 L D (1.8-2.4) mg/dL Total Bilirubin (0.2-1.0) mg/dL AST (15-37) U/L ALT (12-78) U/L Alkaline Phosphatase (46-116) U/L Troponin I < 0.017 (0.000-0.056) ng/mL Total Protein (6.4-8.2) g/dL Albumin (3.4-5.0) g/dL Globulin (2.3-3.5) g/dL Albumin/Globulin Ratio (1.2-2.2) 04/05/17 Range/Units 05:52 WBC (4.5-11.0) K/uL RBC (4.30-5.90) M/uL Hgb (12.0-15.0) g/dL Hct (40.0-54.0) % MCV (80-98) fL MCH (27-31) pg MCHC (32-36) % Plt Count (150-400) K/uL Neut % (Auto) (36-66) % Lymph % (Auto) (24-44) % [place] % (Auto) (2-6) % Eos % (Auto) (2-4) % Baso % (Auto) (0-1) % Sodium 141 (140-148) mmol/L Potassium 4.1 (3.6-5.2) mmol/L Chloride 109 H (100-108) mmol/L Carbon Dioxide 26 (21-32) mmol/L Anion Gap 10.1 (5.0-14.0) mmol/L BUN 17 (7-18) mg/dL Creatinine 1.3 (0.8-1.3) mg/dL Est Cr Clr Drug Dosing 58.68 mL/min Estimated GFR (MDRD) 54 L (>60) Glucose 119 H (74-106) mg/dL Calcium 7.7 L (8.5-10.1) mg/dL Magnesium (1.8-2.4) mg/dL Total Bilirubin 0.7 (0.2-1.0) mg/dL AST 84 H (15-37) U/L ALT 124 H (12-78) U/L Alkaline Phosphatase 91 (46-116) U/L Troponin I (0.000-0.056) ng/mL Total Protein 5.2 L (6.4-8.2) g/dL Albumin 2.4 L (3.4-5.0) g/dL Globulin 2.8 (2.3-3.5) g/dL Albumin/Globulin Ratio 0.9 L (1.2-2.2) Med Orders - Current: Current Medications Acetaminophen (Tylenol) 650 mg PO Q6H PRN PRN Reason: Abdominal Pain Heparin Sodium (Porcine) (Heparin Sodium) 5,000 units SUBCUT Q8H [facility] Piperacillin/Tazobactam/ (Dextrose 3.375 gm/ Premix) 50 mls @ 100 mls/hr IV Q6H [facility] Iopamidol (Isovue-300 (61%)) 150 ml IV . DIRECTED PRN PRN Reason: RADIOLOGY EXAM Stop: 04/06/17 04:45 Last Admin: 04/05/17 05:06 Dose: 150 ml Ondansetron HCl (Zofran) 4 mg IV Q4H PRN PRN Reason: Nausea/Vomiting Pantoprazole Sodium (Protonix) 40 mg PO ACBREAKFAST [facility] Senna/Docusate Sodium (Senna Plus) 1 tab PO BID PRN PRN Reason: Constipation Sodium Chloride (Saline Flush) 10 ml FLUSH ONETIME PRN PRN Reason: per radiology protocol Last Admin: 04/05/17 05:06 Dose: 10 ml Discontinued Medications Acetaminophen (Tylenol) 1,000 mg PO NOW ONE Stop: 04/05/17 01:01 Last Admin: 04/05/17 01:06 Dose: 1,000 mg Heparin Sodium (Porcine) (Heparin Sodium) 5,000 units SUBCUT Q8H [facility] Last Admin: 04/05/17 06:09 Dose: 5,000 units Hydromorphone HCl (Dilaudid) 0.5 mg IVPUSH Q4H PRN PRN Reason: Pain (moderate 4-6) Sodium Chloride (Normal Saline) 1,000 mls @ 150 mls/hr IV ASDIRECTED [facility] Last Admin: 04/05/17 04:48 Dose: 150 mls/hr Sodium Chloride (Normal Saline) 1,000 mls @ 999 mls/hr IV ASDIRECTED [facility] Last Admin: 04/05/17 01:03 Dose: 999 mls/hr Sodium Chloride (Normal Saline) 1,000 mls @ 500 mls/hr IV ASDIRECTED [facility] Last Admin: 04/05/17 02:09 Dose: 500 mls/hr Sodium Chloride (Normal Saline) 1,000 mls @ 500 mls/hr IV ASDIRECTED [facility] Piperacillin Sod/Tazobactam (Sod 3.375 gm/ Sodium Chloride) 50 mls @ 100 mls/ hr IV Q6H [facility] Last Admin: 04/05/17 11:57 Dose: Not Given Ciprofloxacin/Dextrose 400 mg/ (Premix) 200 mls @ 200 mls/hr IV Q12H [facility] Last Admin: 04/05/17 06:09 Dose: 200 mls/hr Metronidazole 500 mg/ Premix 100 mls @ 100 mls/hr IV Q8H [facility] Metronidazole 500 mg/ Premix 100 mls @ 100 mls/hr IV ONETIME ONE Stop: 04/05/17 05:59 Last Admin: 04/05/17 04:46 Dose: 100 mls/hr Sodium Chloride (Normal Saline) 85 mls @ 3.5 mls/sec IV ASDIRECTED [facility] Stop: 04/05/17 10:00 Last Admin: 04/05/17 05:06 Dose: 3.5 mls/sec Influenza Virus Vaccine (Pharmacy To Dose - Influenza Vaccine) 1 each IM ONETIME ONE Stop: 04/06/17 09:01 Influenza Virus Vaccine (Fluzone High-Dose 2016-18) 180 mcg IM .ONCE ONE Stop: 04/05/17 10:01 Morphine Sulfate (Morphine) 2 mg IVPUSH Q2H PRN PRN Reason: Pain (severe 7-10) Pantoprazole Sodium (Protonix Iv) 40 mg IVPUSH ACBREAKFAST [facility] Last Admin: 04/05/17 08:55 Dose: 40 mg - Exam Quality Assessment: DVT Prophylaxis General: Alert, Oriented, Cooperative, Mild Distress Lungs: Clear to Auscultation, Normal Respiratory Effort Cardiovascular: Regular Rate, Regular Rhythm, No Murmurs GI/Abdominal Exam: Normal Bowel Sounds, Soft, No Organomegaly, Tender. No: Distended, Guarding, Rigid, Rebound Extremities: Non-Tender, No Pedal Edema Skin: Warm, Dry - Problem List Review Problem List Initiated/Reviewed/Updated: Yes - My Orders Last 24 Hours: My Active Orders 04/05/17 11:07 Convert IV to Saline Lock [OM.PC] Routine 04/05/17 Lunch Regular Diet [DIET] 04/06/17 05:00 CBC WITH AUTO DIFF [HEME] Timed COMPREHENSIVE METABOLIC PN,CMP [CHEM] Timed 04/06/17 07:30 Pantoprazole [ProTONIX] 40 mg PO ACBREAKFAST 04/06/17 08:00 Cholangiopancreatography [MR] Urgent - Plan Plan:: ASSESSMENT AND PLAN ASCENDING CHOLANGITIS-status post cholecystectomy done approximately 18 months ago with history of similar intermittent symptoms although very brief duration. Evidence of early sepsis with elevated white blood cell count, fever, and tachycardia. Stable following IV fluids with no recurrent temperature elevation. CT scan did show intrahepatic ductal dilatation as well as inflammation in the ducts. -Saline lock IV -Continue IV antibiotic therapy with Zosyn -Discontinue Flagyl and ciprofloxacin -Medication as needed for pain -Cultures pending -MRCP in a.m. for further evaluation of recurrent symptoms. LEFT RENAL ABNORMALITY-incidental finding identified on CT scan -Plan for MRI as an outpatient for follow-up. HYPERTENSION -Continue outpatient medical regimen CHRONIC KIDNEY DISEASE STAGE III -Closely monitor urine output and renal function during hospital stay MAINTENANCE ISSUES -DVT prophylaxis; subcutaneous heparin -GI prophylaxis; proton pump inhibitor therapy -[place] catheter; not indicated -Nutrition; regular diet -Nicotine dependence; not required CODE STATUS-FULL CODE ADMISSION STATUS-patient will be admitted to observation status, expect no more than a one night hospital stay for further evaluation and management of symptoms as noted above DISPOSITION-anticipate discharge to home after the hospital stay. PRIMARY CARE PROVIDER-Dr. Zamarripa
[2017-04-05] MEDS: Heparin Sodium 5,000 Units/ML Vial SUBCUT SCH ×2 (13:08→21:22)
[2017-04-06] MEDS: Piperacillin/Tazobactam/Dext 3.375 GM in Premix Bag 1 BAG IV SCH ×2 (05:00→11:51)
[2017-04-06] MEDS: Heparin Sodium 5,000 Units/ML Vial SUBCUT SCH ×2 (05:01→14:11)
[2017-04-06] MEDS ORDERED: Pantoprazole 40 MG Tab.CR (PTOM) PO SCH (07:30)
--- NOTE | 2017-04-06 08:57 | CR ---
Low lung volumes. Heart size within normal limits. Pulmonary vasculature within normal limits. Slight haziness left lung base may indicate trace pleural effusion or developing infiltrate.
[2017-04-06] MEDS ORDERED: Potassium Chloride 10 MEQ Cap.ER PO SCH (11:00)
[2017-04-06] MEDS ORDERED: FLU Vacc TS 2017-18 (65yr UP)/PF 180 MCG/0.5 ML Syringe IM ONE (11:00)
--- NOTE | 2017-04-06 11:54 | MR ---
MRCP. Findings: Mild intrahepatic biliary ductal dilatation. Status post cholecystectomy. The most proximal common bile duct is nonvisualized on this examination. The mid and distal common bile duct are visua lized and are nondilated. Common bile duct where visualized is up to 5 mm. Within the distal common b ile duct there is a 4 mm focus of low signal. There is pneumobilia likely within the left lobe of the liver. Adrenal glands demonstrate no evidence for mass. Bilateral renal cysts. The left renal mass w hich is described on prior is not well-visualized in this examination. Recommend contrasted CT or MRI follow-up. There are 2 tiny hyperintense masses within the spleen which are too small to characteriz e. The pancreas demonstrates no evidence for a dilated duct. Impression: 1. The most proximal common bile duct is nonvisualized on this examination. Cannot exclude a strictur e as there is mild intrahepatic biliary ductal dilatation. Consider ERCP follow-up. 2. Additionally within the distal common bile duct there is a 4 mm focus of low signal which could re late to an air bubble or stone. Again correlate for cholangitis and consider ERCP follow-up.
--- NOTE | 2017-04-06 14:45 | PCM.DCSUM1 ---
Discharge Summary - Hospital Course Brief History: Mr. Iglesias is a 76-year-old gentleman who was admitted through the emergency department with sepsis secondary to ascending cholangitis. - Discharge Data Discharge Date: 04/06/17 Discharge Disposition: DC/Tfer to Acute Hospital 02 Condition: Stable - Discharge Diagnosis/Problem(s) (1) Ascending cholangitis SNOMED Code(s): 14121008 ICD Code: K83.0 - CHOLANGITIS Status: Acute Current Visit: Yes (2) Common bile duct calculus SNOMED Code(s): 039801315 ICD Code: K80.50 - CALCULUS OF BILE DUCT W/O CHOLANGITIS OR CHOLECYST W/O OBST Status: Acute Current Visit: Yes (3) Sepsis SNOMED Code(s): 67307553 ICD Code: A41.9 - SEPSIS, UNSPECIFIED ORGANISM Status: Acute Current Visit: Yes - Patient Summary/Data Hospital Course: Mr. Iglesias is a 76-year-old gentleman who is admitted through the emergency department with symptoms of right upper quadrant abdominal pain, nausea, vomiting, fever, secondary to ascending cholangitis and sepsis. He underwent cholecystectomy approximately 18 months ago and reports that since then he's had intermittent episodes of right upper quadrant abdominal pain with nausea. He experienced similar symptoms on the night of admission which were more severe and prolonged than what he experienced in the past. On evaluation in the emergency department white blood cell count was within normal range, lactic acid was at the upper end of normal range. He was tachycardic with acceptable blood pressures. Temperature was elevated and on CT scan of the abdomen was noted to have mild intrahepatic ductal dilatation associated with thickening of the sawant consistent with possible infection. Blood cultures were obtained and he was started on IV antibiotic therapy with Zosyn at the time of admission. He was given IV fluids for management of early sepsis. Within the first 24 hours blood cultures became positive, all 4 bottles growing gram-negative rods. Final ID and sensitivities from the cultures are pending at the time of transfer. With IV antibiotic therapy and fluids see stabilized and has not had significant temperature elevation over the past 24 hours. Right upper quadrant abdominal pain has resolved and he is had no further nausea or vomiting. MRCP was obtained on the day of transfer and showed evidence of possible proximal stricture as well as an area of possible stone versus air bubble. Given his recurrent symptoms as well as sepsis and pain at the time of admission he will be referred to tertiary care center for further subspecialty evaluation and probable ERCP. He will be transferred via [facility] ambulance. - Patient Instructions Diet: Usual Diet as Tolerated Activity: As Tolerated Other/Special Instructions: Patient will be transferred via [facility] to [facility] in [facility] for further subspecialty evaluation and management. - Discharge Plan Home Medications: Home Meds Lisinopril [Prinivil] 20 mg PO BEDTIME 04/10/14 [History] Pantoprazole Sodium [Protonix] 40 mg PO DAILY #30 tablet. 08/27/15 [Rx] metroNIDAZOLE [metroNIDAZOLE 0.75% Gel] 1 dose TOP BID 08/17/16 [History] Potassium Citrate [Potassium Citrate ER] 10 meq PO DAILY 04/05/17 [History] Piperacillin/Tazobactam/Dext [Zosyn in Dextrose Iso-Osmotic 3.375 GM] 3.375 gm IV Q6H bag 04/06/17 [Rx] Referrals: Brayden Zamarripa MD [Physician] - - Patient Data Vitals - Most Recent: Last Vital Signs Temp 99.9 F 04/06/17 12:21 Pulse 87 04/06/17 11:35 Resp 17 04/06/17 11:35 BP 128/65 04/06/17 11:35 Pulse Ox 97 04/06/17 11:35 Weight - Most Recent: 255 lb 11.215 oz I&O - Last 24 hours: Intake & Output 04/05/17 04/06/17 04/06/17 22:59 06:59 14:59 Intake Total 650 100 440 Output Total 425 1000 500 Balance 225 -900 -60 Lab Results - Last 24 hrs: Laboratory Results - last 24 hr 04/06/17 04/06/17 Range/Units 05:49 05:49 WBC 7.1 (4.5-11.0) K/uL RBC 4.43 (4.30-5.90) M/uL Hgb 13.9 (12.0-15.0) g/dL Hct 42.7 (40.0-54.0) % MCV 96 (80-98) fL MCH 31 (27-31) pg MCHC 33 (32-36) % Plt Count 135 L (150-400) K/uL Neut % (Auto) 80 H (36-66) % Lymph % (Auto) 11 L (24-44) % [place] % (Auto) 7 H (2-6) % Eos % (Auto) 2 (2-4) % Baso % (Auto) 0 (0-1) % Sodium 140 (140-148) mmol/L Potassium 4.2 (3.6-5.2) mmol/L Chloride 107 (100-108) mmol/L Carbon Dioxide 24 (21-32) mmol/L Anion Gap 8.7 (5.0-14.0) mmol/L BUN 14 (7-18) mg/dL Creatinine 1.2 (0.8-1.3) mg/dL Est Cr Clr Drug Dosing 63.57 mL/min Estimated GFR (MDRD) 59 L (>60) Glucose 94 (74-106) mg/dL Calcium 8.0 L (8.5-10.1) mg/dL Total Bilirubin 0.8 (0.2-1.0) mg/dL AST 42 H (15-37) U/L ALT 100 H (12-78) U/L Alkaline Phosphatase 84 (46-116) U/L Total Protein 5.8 L (6.4-8.2) g/dL Albumin 2.5 L (3.4-5.0) g/dL Globulin 3.3 (2.3-3.5) g/dL Albumin/Globulin Ratio 0.8 L (1.2-2.2) Med Orders - Current: Current Medications Acetaminophen (Tylenol) 650 mg PO Q6H PRN PRN Reason: Abdominal Pain Last Admin: 04/06/17 11:51 Dose: 650 mg Heparin Sodium (Porcine) (Heparin Sodium) 5,000 units SUBCUT Q8H [facility] Last Admin: 04/06/17 14:11 Dose: 5,000 units Piperacillin/Tazobactam/ (Dextrose 3.375 gm/ Premix) 50 mls @ 100 mls/hr IV Q6H [facility] Last Admin: 04/06/17 11:51 Dose: 100 mls/hr Lisinopril (Prinivil) 20 mg PO BEDTIME [facility] Ondansetron HCl (Zofran) 4 mg IV Q4H PRN PRN Reason: Nausea/Vomiting Pantoprazole Sodium (Protonix) 40 mg PO ACBREAKFAST [facility] Last Admin: 04/06/17 07:34 Dose: 40 mg Potassium Chloride (Potassium Chloride) 10 meq PO DAILY [facility] Last Admin: 04/06/17 11:42 Dose: 10 meq Senna/Docusate Sodium (Senna Plus) 1 tab PO BID PRN PRN Reason: Constipation Sodium Chloride (Saline Flush) 10 ml FLUSH ONETIME PRN PRN Reason: per radiology protocol Last Admin: 04/05/17 13:09 Dose: 10 ml Discontinued Medications Acetaminophen (Tylenol) 1,000 mg PO NOW ONE Stop: 04/05/17 01:01 Last Admin: 04/05/17 01:06 Dose: 1,000 mg Heparin Sodium (Porcine) (Heparin Sodium) 5,000 units SUBCUT Q8H [facility] Last Admin: 04/05/17 06:09 Dose: 5,000 units Hydromorphone HCl (Dilaudid) 0.5 mg IVPUSH Q4H PRN PRN Reason: Pain (moderate 4-6) Sodium Chloride (Normal Saline) 1,000 mls @ 150 mls/hr IV ASDIRECTED [facility] Last Admin: 04/05/17 04:48 Dose: 150 mls/hr Sodium Chloride (Normal Saline) 1,000 mls @ 999 mls/hr IV ASDIRECTED [facility] Last Admin: 04/05/17 01:03 Dose: 999 mls/hr Sodium Chloride (Normal Saline) 1,000 mls @ 500 mls/hr IV ASDIRECTED [facility] Last Admin: 04/05/17 02:09 Dose: 500 mls/hr Sodium Chloride (Normal Saline) 1,000 mls @ 500 mls/hr IV ASDIRECTED [facility] Piperacillin Sod/Tazobactam (Sod 3.375 gm/ Sodium Chloride) 50 mls @ 100 mls/ hr IV Q6H [facility] Last Admin: 04/05/17 11:57 Dose: Not Given Ciprofloxacin/Dextrose 400 mg/ (Premix) 200 mls @ 200 mls/hr IV Q12H [facility] Last Admin: 04/05/17 06:09 Dose: 200 mls/hr Metronidazole 500 mg/ Premix 100 mls @ 100 mls/hr IV Q8H [facility] Metronidazole 500 mg/ Premix 100 mls @ 100 mls/hr IV ONETIME ONE Stop: 04/05/17 05:59 Last Admin: 04/05/17 04:46 Dose: 100 mls/hr Sodium Chloride (Normal Saline) 85 mls @ 3.5 mls/sec IV ASDIRECTED [facility] Stop: 04/05/17 10:00 Last Admin: 04/05/17 05:06 Dose: 3.5 mls/sec Influenza Virus Vaccine (Pharmacy To Dose - Influenza Vaccine) 1 each IM ONETIME ONE Stop: 04/06/17 09:01 Influenza Virus Vaccine (Fluzone High-Dose ) 180 mcg IM .ONCE ONE Stop: 04/05/17 10:01 Last Admin: 04/05/17 14:03 Dose: Not Given Influenza Virus Vaccine (Fluzone High-Dose ) 180 mcg IM .ONCE ONE Stop: 04/06/17 11:01 Iopamidol (Isovue-300 (61%)) 150 ml IV . DIRECTED PRN PRN Reason: RADIOLOGY EXAM Stop: 04/06/17 04:45 Last Admin: 04/05/17 05:06 Dose: 150 ml Morphine Sulfate (Morphine) 2 mg IVPUSH Q2H PRN PRN Reason: Pain (severe 7-10) Pantoprazole Sodium (Protonix Iv) 40 mg IVPUSH ACBREAKFAST [facility] Last Admin: 04/05/17 08:55 Dose: 40 mg *Q Meaningful Use (DIS) - VTE *Q VTE Criteria *Q: - Stroke *Q Stroke Criteria *Q: - AMI *Q AMI Criteria *Q:
[2017-04-06 15:12] VITALS: BP 121/59
[2017-04-06] MEDS ORDERED: Lisinopril 20 MG Tab PO SCH (21:00)
== END 2017-04-06 16:00 ==
LOC: JP.ED 00:38 → JP.MS 04:03
PROVIDERS: ADMIT Family Medicine; ATTEND Hospitalist
DX: K83.0 Cholangitis (principal); K80.50 Calculus of bile duct without cholangitis or cholecystitis without obstruction; A41.9 Sepsis, unspecified organism; I10 Essential (primary) hypertension; K21.9 Gastro-esophageal reflux disease without esophagitis; E66.9 Obesity, unspecified; Z68.30 Body mass index [BMI] 30.0-30.9, adult; Z79.899 Other long term (current) drug therapy; Z88.8 Allergy status to other drugs, medicaments and biological substances; Z87.891 Personal history of nicotine dependence
CPT/HCPCS: 36415; 36600; 71010; 74177; 74181; 80053; 81001; 82803; 83605; 83690; 83735; 83880; 84484; 85025; 87040; 87077; 87086; 87186; 87804; 93005; 96361; 96365; 99285; A9270; C9113; J0744; J1644; J2543; J7030; J7040; J7050; 93010; 96366; 96367; 96372; 96375; 96376; 99217; 99225; 99284; G0378

== ENCOUNTER 2017-05-18 03:07 | Emergency (ER) | payer MEDICARE, BC ==
[2017-05-18] MEDS ORDERED: Aspirin 81 MG Tab.Chew PO ONE (04:05)
[2017-05-18] MEDS ORDERED: Ketorolac 60 MG/2 ML SDV IM ONE (04:06)
--- NOTE | 2017-05-18 04:09 | EDM.PDOC ---
ED HPI GENERAL MEDICAL PROBLEM - General Chief Complaint: Respiratory Problem Stated Complaint: COUGH Time Seen by Provider: 05/18/17 03:56 Source of Information: Reports: Patient, RN Notes Reviewed History Limitations: Reports: No Limitations - History of Present Illness INITIAL COMMENTS - FREE TEXT/NARRATIVE: 76-year-old gentleman presents emergency department day complaint of cough, he states he's had a cough for about a month and a half is concerned it might be related to his ANA inhibitor however which different about a cough today is he developed chest pain he describes as a burning sensation with the cough is constant in nature he had this chest pain yesterday it is similar there is no diaphoresis he does feel somewhat short of breath no nausea vomiting no history of coronary artery disease no history of tobacco use, burning in the chest started at 1 PM this morning Mid-Sternal Pain Score (Numeric/FACES): 3 - Related Data Allergies Allergy/AdvReac Type Severity Reaction Status Date / Time hydromorphone [From Dilaudid] AdvReac Nausea and Verified 05/18/17 03:20 Vomiting morphine AdvReac Nausea and Verified 05/18/17 03:20 Vomiting Home Meds: Home Meds Lisinopril [Prinivil] 20 mg PO DAILY 04/10/14 [History] metroNIDAZOLE [metroNIDAZOLE 0.75% Gel] 1 dose TOP BID 08/17/16 [History] Potassium Citrate [Potassium Citrate ER] 10 meq PO DAILY 04/05/17 [History] Pantoprazole Sodium [Protonix] 20 mg PO DAILY 05/18/17 [History] Past Medical History HEENT History: Reports: Cataract, Impaired Vision, Otitis Media, Sinusitis Cardiovascular History: Reports: Hypertension Gastrointestinal History: Reports: Cholelithiasis, Diverticulosis, GERD, Hiatal Hernia Genitourinary History: Reports: Prostate Disorder, Renal Calculus Endocrine/Metabolic History: Reports: Obesity/BMI 30+ Oncologic (Cancer) History: Reports: Basal Cell Carcinoma, Prostate, Other (See Below) Other Oncologic History: skin Dermatologic History: Reports: Benign Melanoma, Melanoma, Other (See Below) Other Dermatologic History: skin ca basal - Infectious Disease History Infectious Disease History: Reports: Chicken Pox, Measles, Mumps - Past Surgical History HEENT Surgical History: Reports: Cataract Surgery, Other (See Below) Cardiovascular Surgical History: Reports: None Respiratory Surgical History: Reports: None GI Surgical History: Reports: Cholecystectomy, Other (See Below) Other GI Surgeries/Procedures: Abdomenal surgery. Bile duct drain. Male Surgical History: Reports: Kidney Stone Extraction, Prostatectomy, Renal Calculus Endocrine Surgical History: Reports: None Neurological Surgical History: Reports: None Musculoskeletal Surgical History: Reports: None Dermatological Surgical History: Reports: Skin Biopsy Social & Family History - Family History Family Medical History: Noncontributory : Reports: Renal Calculus - Tobacco Use Smoking Status *Q: Former Smoker Years of Tobacco use: 25 Packs/Tins Daily: 0.5 Used Tobacco, but Quit: Yes Month Tobacco Last Used: 1987 Second Hand Smoke Exposure: No - Caffeine Use Caffeine Use: Reports: Coffee, Soda Caffeine Use Comment: drinks 1 cup/day - Alcohol Use Days Per Week of Alcohol Use: 5 Number of Drinks Per Day: 1 Total Drinks Per Week: 5 - Recreational Drug Use Recreational Drug Use: No ED ROS GENERAL - Review of Systems Review Of Systems: See Below Constitutional: Denies: Fever, Chills HEENT: Reports: No Symptoms Respiratory: Reports: Shortness of Breath, Cough Cardiovascular: Reports: Chest Pain GI/Abdominal: Reports: No Symptoms : Reports: No Symptoms Musculoskeletal: Reports: No Symptoms Skin: Reports: No Symptoms Neurological: Reports: No Symptoms ED EXAM, GENERAL - Physical Exam Exam: See Below Free Text/Narrative:: General: Male, not in any distress, alert and oriented x3 HEENT: head is atraumatic normocephalic, eyes pupils equal round reactive to light, sclera clear no conjunctivitis appreciated. Ears tympanic membranes clear and cross landmarks and light reflex are present bilaterally canals are clear. Nose no septal deviation, nares are clear, no blood present. Mouth mucosa is moist and pink no erythema or exudate noted in soft palate, tongue is midline uvula is midline, dentures in place. Neck: Supple no thyromegaly no tracheal deviation. Nodes: Cervical nodes subclavicular nodes nontender no palpable lymphadenopathy noted. Lungs: clear to auscultation bilaterally with symmetrical respirations, no adventitious noise appreciated. CV: Regular rate and rhythm S1 and S2 appreciated no murmurs rubs or gallops noted. Abdomen: Soft, nontender, no palpable masses or organomegaly appreciated, no distention no guarding bowel sounds are present, Neuro: Cranial nerves II through XII grossly intact Skin: Warm and dry, intact Extremities: No lower extremity edema appreciated, Course - Vital Signs Last Recorded V/S: Last Vital Signs Temp 99.0 F 05/18/17 03:28 Pulse 110 H 05/18/17 03:28 Resp 16 05/18/17 03:28 BP 93/63 05/18/17 05:01 Pulse Ox 95 05/18/17 03:28 - Orders/Labs/Meds Orders: Active Orders 24 hr Category Date Time Status Cardiac Monitoring [RC] .As Directed Care 05/18/17 04:05 Active Cardiac Monitoring [RC] .As Directed Care 05/18/17 04:36 Active EKG Documentation Completion [RC] ASDIRECTED Care 05/18/17 04:06 Active Peripheral IV Care [RC] . DIRECTED Care 05/18/17 04:36 Active Chest 1V Frontal [CR] Urgent Exams 05/18/17 04:27 Taken Heparin Sodium/D5W [Heparin 25,000 Units in D5W 500 ML] Med 05/18/17 04:45 Active 25,000 units in 500 ml IV TITRATE Nitroglycerin [Nitrostat] Med 05/18/17 04:35 Active 0.4 mg SL Q5M PRN Sodium Chloride 0.9% [Saline Flush] Med 05/18/17 04:35 Active 10 ml FLUSH ASDIRECTED PRN Peripheral IV Insertion Adult [OM.PC] Stat Oth 05/18/17 04:35 Ordered Peripheral IV Insertion Adult [OM.PC] Urgent Oth 05/18/17 04:35 Ordered Saline Lock Insert [OM.PC] Stat Oth 05/18/17 04:35 Ordered EKG 12 Lead [EK] Stat Ther 05/18/17 04:06 Ordered Medication Orders Heparin Sodium/Dextrose (Heparin 25,000 Units In D5w 500 Ml) 25,000 units in 500 mls @ 25.704 mls/hr IV TITRATE REGGIE; 12 UNITS/KG/HR PRN Reason: Protocol Nitroglycerin (Nitrostat) 0.4 mg SL Q5M PRN PRN Reason: Chest Pain Stop: 05/19/17 04:36 Last Admin: 05/18/17 05:01 Dose: 0.4 mg Sodium Chloride (Saline Flush) 10 ml FLUSH ASDIRECTED PRN PRN Reason: Keep Vein Open Last Admin: 05/18/17 04:48 Dose: 10 ml Labs: Laboratory Tests 05/18/17 05/18/17 Range/Units 04:15 04:15 WBC 12.3 H (4.5-11.0) K/uL RBC 4.60 (4.30-5.90) M/uL Hgb 14.3 (12.0-15.0) g/dL Hct 43.8 (40.0-54.0) % MCV 95 (80-98) fL MCH 31 (27-31) pg MCHC 33 (32-36) % Plt Count 236 (150-400) K/uL Neut % (Auto) 82 H (36-66) % Lymph % (Auto) 6 L (24-44) % Scurry % (Auto) 10 H (2-6) % Eos % (Auto) 2 (2-4) % Baso % (Auto) 0 (0-1) % Sodium 138 L (140-148) mmol/L Potassium 4.4 (3.6-5.2) mmol/L Chloride 103 (100-108) mmol/L Carbon Dioxide 29 (21-32) mmol/L Anion Gap 10.4 (5.0-14.0) mmol/L BUN 18 (7-18) mg/dL Creatinine 1.2 (0.8-1.3) mg/dL Est Cr Clr Drug Dosing 63.57 mL/min Estimated GFR (MDRD) 59 L (>60) Glucose 124 H (74-106) mg/dL Calcium 8.5 (8.5-10.1) mg/dL Total Bilirubin 0.8 (0.2-1.0) mg/dL AST 15 (15-37) U/L ALT 23 D (12-78) U/L Alkaline Phosphatase 107 (46-116) U/L CK-MB (CK-2) 0.4 (0-3.6) mg/mL Troponin I < 0.017 (0.000-0.056) ng/mL Total Protein 6.2 L (6.4-8.2) g/dL Albumin 2.8 L (3.4-5.0) g/dL Globulin 3.4 (2.3-3.5) g/dL Albumin/Globulin Ratio 0.8 L (1.2-2.2) Meds: Medications Generic Name Dose Route Start Last Admin Trade Name Freq PRN Reason Stop Dose Admin Heparin Sodium/Dextrose 25,000 units in 500 mls @ 25.704 mls/hr 05/18/17 04: 45 Heparin 25,000 Units In D5w 500 Ml IV TITRATE REGGIE Protocol 12 UNITS/KG/HR Nitroglycerin 0.4 mg 05/18/17 04:35 05/18/17 05:01 Nitrostat SL 05/19/17 04:36 0.4 mg Q5M PRN Administration Chest Pain Sodium Chloride 10 ml 05/18/17 04:35 05/18/17 04:48 Saline Flush FLUSH 10 ml ASDIRECTED PRN Administration Keep Vein Open Discontinued Medications Generic Name Dose Route Start Last Admin Trade Name Freq PRN Reason Stop Dose Admin Aspirin 324 mg 05/18/17 04:05 05/18/17 04:15 Aspirin PO 05/18/17 04:06 324 mg ONETIME ONE Administration Clopidogrel Bisulfate 600 mg 05/18/17 04:36 05/18/17 04:44 Plavix PO 05/18/17 04:37 600 mg ONETIME ONE Administration Heparin Sodium (Porcine) 5,000 units 05/18/17 04:36 05/18/17 04:46 Heparin Sodium IVPUSH 05/18/17 04:37 5,000 units ONETIME ONE Administration Ketorolac Tromethamine 60 mg 05/18/17 04:06 05/18/17 04:16 Toradol IM 05/18/17 04:07 60 mg ONETIME ONE Administration Metoprolol Succinate 25 mg 05/18/17 04:36 Toprol Xl PO 05/18/17 04:37 ONETIME ONE Departure - Departure Time of Disposition: 05:19 Disposition: DC/Tfer to Acute Hospital 02 Condition: Fair Clinical Impression: Chest pain Qualifiers: Chest pain type: unspecified Qualified Code(s): R07.9 - Chest pain, unspecified - Discharge Information Referrals: Brayden Zamarripa MD [Primary Care Provider] - Forms: ED Department Discharge - My Orders Last 24 Hours: My Active Orders 05/18/17 04:05 Cardiac Monitoring [RC] .As Directed 05/18/17 04:06 EKG Documentation Completion [RC] ASDIRECTED EKG 12 Lead [EK] Stat 05/18/17 04:27 Chest 1V Frontal [CR] Urgent 05/18/17 04:35 Nitroglycerin [Nitrostat] 0.4 mg SL Q5M PRN Sodium Chloride 0.9% [Saline Flush] 10 ml FLUSH ASDIRECTED PRN Peripheral IV Insertion Adult [OM.PC] Stat Peripheral IV Insertion Adult [OM.PC] Urgent Saline Lock Insert [OM.PC] Stat 05/18/17 04:36 Cardiac Monitoring [RC] .As Directed Peripheral IV Care [RC] . DIRECTED 05/18/17 04:45 Heparin Sodium/D5W [Heparin 25,000 Units in D5W 500 ML] 25,000 units in 500 ml IV TITRATE - Assessment/Plan Last 24 Hours: My Active Orders 05/18/17 04:05 Cardiac Monitoring [RC] .As Directed 05/18/17 04:06 EKG Documentation Completion [RC] ASDIRECTED EKG 12 Lead [EK] Stat 05/18/17 04:27 Chest 1V Frontal [CR] Urgent 05/18/17 04:35 Nitroglycerin [Nitrostat] 0.4 mg SL Q5M PRN Sodium Chloride 0.9% [Saline Flush] 10 ml FLUSH ASDIRECTED PRN Peripheral IV Insertion Adult [OM.PC] Stat Peripheral IV Insertion Adult [OM.PC] Urgent Saline Lock Insert [OM.PC] Stat 05/18/17 04:36 Cardiac Monitoring [RC] .As Directed Peripheral IV Care [RC] . DIRECTED 05/18/17 04:45 Heparin Sodium/D5W [Heparin 25,000 Units in D5W 500 ML] 25,000 units in 500 ml IV TITRATE Plan: Assessment Acuity = acute Site and laterality = chest pain complicated in a patient with recent percutaneous drain for a sending: [place] Etiology = unclear etiology Manifestations = none Location of injury = Home Lab values = WBC elevated at 12.3 consistent leukocytosis albumin low at 2.8 consistent with hypoalbuminemia troponin and CK-MB are negative chest x-ray shows no acute process EKG reveals ST changes on to 3 and aVF approximately 1 mm Plan called and discussed case with Dr. Major cardiology at [facility] kindly accepted the patient in transport will be transported via EMS ground he has received 25 mg metoprolol tartrate, 5000 unit bolus of heparin heparin drip was initiated in route 600 of Plavix, Toradol 60 mg IM, 324 of aspirin and 1 nitroglycerin sublingual which did provide pain relief This note was dictated using [employer] voice recognition software please call with any questions on syntax or prachi.
[2017-05-18] MEDS ORDERED: Sodium Chloride 0.9% 10 ML Syringe FLUSH PRN (04:35)
[2017-05-18] MEDS ORDERED: Nitroglycerin 0.4 MG Tab.SL SL PRN (04:35)
[2017-05-18] MEDS ORDERED: Heparin Sodium 5,000 Units/ML Vial IVPUSH ONE (04:36)
[2017-05-18] MEDS ORDERED: Metoprolol Succinate 25 MG Tab.ER PO ONE (04:36)
[2017-05-18] MEDS ORDERED: Clopidogrel 75 MG Tab PO ONE (04:36)
[2017-05-18] MEDS ORDERED: Heparin Sodium/D5W 25,000 UNITS/500 ML BAG IV SCH (04:45)
[2017-05-18 05:01] VITALS: BP 93/63
[2017-05-18] MEDS ORDERED: Metoprolol Tartrate 25 MG Tab PO ONE (05:19)
--- NOTE | 2017-05-18 09:03 | CR ---
Mild cardiomegaly. Pulmonary vasculature within normal limits. No focal consolidation. Blunted left c ostophrenic angle may indicate pleural thickening, atelectasis or trace pleural effusion.
== END 2017-05-18 05:35 ==
LOC: JP.ED 03:07
DX: R07.9 Chest pain, unspecified (principal); I10 Essential (primary) hypertension; Z88.5 Allergy status to narcotic agent; Z79.899 Other long term (current) drug therapy; Z87.891 Personal history of nicotine dependence
CPT/HCPCS: 36415; 71045; 80053; 82553; 84484; 85025; 93005; 96372; 96374; 96376; 99285; A9270; J1644; J1885; J7050; 93010

== ENCOUNTER 2017-06-04 08:17 | Emergency (ER) | payer MEDICARE, BC ==
[2017-06-04 08:36] VITALS: BP 117/66
--- NOTE | 2017-06-04 09:11 | EDM.PDOC ---
ED HPI GENERAL MEDICAL PROBLEM - General Chief Complaint: Chest Pain Stated Complaint: CHEST PAIN,SHORTNESS OF BREATH Time Seen by Provider: 06/04/17 09:07 Source of Information: Reports: Patient, Old Records History Limitations: Reports: No Limitations - History of Present Illness INITIAL COMMENTS - FREE TEXT/NARRATIVE: pt arrived with bilateral burning chest pain. This is far worse when he takes a deep breath. He was sob with activity particularly this am when he got up to go to the . He was recently hospitalized in [place]. He had a angiogram which showed good cornoray arteries, He was treated for a pericarditis. He was scheduled with general surgery in [facility] to have a procedure regarding a liver stent. Onset: Today Duration: Hour(s): Location: Reports: Chest Associated Symptoms: Reports: Chest Pain, Cough - Related Data Allergies Allergy/AdvReac Type Severity Reaction Status Date / Time hydromorphone [From Dilaudid] AdvReac Nausea and Verified 05/18/17 03:20 Vomiting morphine AdvReac Nausea and Verified 05/18/17 03:20 Vomiting Home Meds: Home Meds metroNIDAZOLE [metroNIDAZOLE 0.75% Gel] 1 dose TOP BID 08/17/16 [History] Potassium Citrate [Potassium Citrate ER] 10 meq PO DAILY 04/05/17 [History] Pantoprazole Sodium [Protonix] 20 mg PO DAILY 05/18/17 [History] Amiodarone HCl [Pacerone] 0.5 tab PO DAILY 06/04/17 [History] Losartan Potassium [Losartan Potassium] 1 tab PO DAILY 06/04/17 [History] Warfarin Sodium [Warfarin Sodium] 1 tab PO DAILY 06/04/17 [History] Past Medical History HEENT History: Reports: Cataract, Impaired Vision, Otitis Media, Sinusitis Cardiovascular History: Reports: Hypertension Respiratory History: Reports: None Gastrointestinal History: Reports: Cholelithiasis, Diverticulosis, GERD, Hiatal Hernia Genitourinary History: Reports: Prostate Disorder, Renal Calculus Musculoskeletal History: Reports: None Neurological History: Reports: None Psychiatric History: Reports: None Endocrine/Metabolic History: Reports: Obesity/BMI 30+ Hematologic History: Reports: None Immunologic History: Reports: None Oncologic (Cancer) History: Reports: Basal Cell Carcinoma, Prostate, Other (See Below) Other Oncologic History: skin Dermatologic History: Reports: Benign Melanoma, Melanoma, Other (See Below) Other Dermatologic History: skin ca basal - Infectious Disease History Infectious Disease History: Reports: Chicken Pox, Measles, Mumps - Past Surgical History HEENT Surgical History: Reports: Cataract Surgery, Other (See Below) Cardiovascular Surgical History: Reports: None Respiratory Surgical History: Reports: None GI Surgical History: Reports: Cholecystectomy, Other (See Below) Other GI Surgeries/Procedures: Abdomenal surgery. Bile duct drain. Male Surgical History: Reports: Kidney Stone Extraction, Prostatectomy, Renal Calculus Endocrine Surgical History: Reports: None Neurological Surgical History: Reports: None Musculoskeletal Surgical History: Reports: None Dermatological Surgical History: Reports: Skin Biopsy Social & Family History - Family History Family Medical History: Noncontributory : Reports: Renal Calculus - Tobacco Use Smoking Status *Q: Never Smoker Years of Tobacco use: 25 Packs/Tins Daily: 0.5 Used Tobacco, but Quit: Yes Month Tobacco Last Used: 1987 Second Hand Smoke Exposure: No - Caffeine Use Caffeine Use: Reports: Coffee, Soda Caffeine Use Comment: drinks 1 cup/day - Alcohol Use Days Per Week of Alcohol Use: 5 Number of Drinks Per Day: 1 Total Drinks Per Week: 5 - Recreational Drug Use Recreational Drug Use: No ED ROS GENERAL - Review of Systems Review Of Systems: See Below Constitutional: Reports: No Symptoms HEENT: Reports: No Symptoms Respiratory: Reports: Shortness of Breath, Other (pain with deep breathing/ ) Cardiovascular: Reports: No Symptoms Endocrine: Reports: No Symptoms GI/Abdominal: Reports: No Symptoms : Reports: No Symptoms Musculoskeletal: Reports: No Symptoms Skin: Reports: No Symptoms ED EXAM, GENERAL - Physical Exam Exam: See Below Free Text/Narrative:: pt arrived with some burning chest pain at the lower lung [place]. He also experienced son. He was mildly liteheaded and he did feel weak. Exam Limited By: No Limitations General Appearance: Alert, Anxious Ears: Normal TMs Nose: Normal Inspection Throat/Mouth: Normal Inspection Head: Atraumatic Neck: Normal Inspection Respiratory/Chest: No Respiratory Distress Cardiovascular: Irregularly Irregular, Other (pt has a history of atrial fib. He is on coumadin and did recently have a high inr. He has been off of coumadin and he had an INR today at the clinic of 1.4. ) GI/Abdominal: Soft, Non-Tender (Male) Exam: Deferred Rectal (Males) Exam: Deferred Back Exam: Normal Inspection Extremities: Normal Inspection Neurological: Alert, Oriented, Normal Cognition Psychiatric: Normal Affect Course - Vital Signs Last Recorded V/S: Last Vital Signs Temp 36.7 C 06/04/17 08:59 Pulse 113 H 06/04/17 08:59 Resp 21 H 06/04/17 08:59 BP 117/66 06/04/17 08:59 Pulse Ox 100 06/04/17 08:59 - Orders/Labs/Meds Orders: Active Orders 24 hr Category Date Time Status EKG Documentation Completion [RC] ASDIRECTED Care 06/04/17 09:05 Active UA W/MICROSCOPIC [URIN] Urgent Lab 06/04/17 09:06 Ordered EKG 12 Lead [EK] Routine Ther 06/04/17 09:05 Ordered Labs: Laboratory Tests 06/04/17 06/04/17 06/04/17 Range/Units 09:10 09:10 09:10 WBC 9.3 (4.5-11.0) K/uL RBC 4.52 (4.30-5.90) M/uL Hgb 13.8 (12.0-15.0) g/dL Hct 42.3 (40.0-54.0) % MCV 94 (80-98) fL MCH 31 (27-31) pg MCHC 33 (32-36) % Plt Count 229 (150-400) K/uL Neut % (Auto) 86 H (36-66) % Lymph % (Auto) 5 L (24-44) % Mcdonough % (Auto) 9 H (2-6) % Eos % (Auto) 0 L (2-4) % Baso % (Auto) 0 (0-1) % Sodium 140 (140-148) mmol/L Potassium 4.0 (3.6-5.2) mmol/L Chloride 104 (100-108) mmol/L Carbon Dioxide 26 (21-32) mmol/L Anion Gap 10.1 (5.0-14.0) mmol/L BUN 11 (7-18) mg/dL Creatinine 1.2 (0.8-1.3) mg/dL Est Cr Clr Drug Dosing 63.57 mL/min Estimated GFR (MDRD) 59 L (>60) Glucose 111 H (74-106) mg/dL Calcium 8.2 L (8.5-10.1) mg/dL Total Bilirubin 1.1 H (0.2-1.0) mg/dL AST 13 L (15-37) U/L ALT 30 (12-78) U/L Alkaline Phosphatase 101 (46-116) U/L Troponin I (0.000-0.056) ng/mL C-Reactive Protein 12.11 H (0.0-0.3) mg/dL NT-Pro-B Natriuret Pep (5-450) pg/mL Total Protein 5.9 L (6.4-8.2) g/dL Albumin 2.6 L (3.4-5.0) g/dL Globulin 3.3 (2.3-3.5) g/dL Albumin/Globulin Ratio 0.8 L (1.2-2.2) 06/04/17 06/04/17 Range/Units 09:10 09:10 WBC (4.5-11.0) K/uL RBC (4.30-5.90) M/uL Hgb (12.0-15.0) g/dL Hct (40.0-54.0) % MCV (80-98) fL MCH (27-31) pg MCHC (32-36) % Plt Count (150-400) K/uL Neut % (Auto) (36-66) % Lymph % (Auto) (24-44) % Mcdonough % (Auto) (2-6) % Eos % (Auto) (2-4) % Baso % (Auto) (0-1) % Sodium (140-148) mmol/L Potassium (3.6-5.2) mmol/L Chloride (100-108) mmol/L Carbon Dioxide (21-32) mmol/L Anion Gap (5.0-14.0) mmol/L BUN (7-18) mg/dL Creatinine (0.8-1.3) mg/dL Est Cr Clr Drug Dosing mL/min Estimated GFR (MDRD) (>60) Glucose (74-106) mg/dL Calcium (8.5-10.1) mg/dL Total Bilirubin (0.2-1.0) mg/dL AST (15-37) U/L ALT (12-78) U/L Alkaline Phosphatase (46-116) U/L Troponin I < 0.017 (0.000-0.056) ng/mL C-Reactive Protein (0.0-0.3) mg/dL NT-Pro-B Natriuret Pep 406 (5-450) pg/mL Total Protein (6.4-8.2) g/dL Albumin (3.4-5.0) g/dL Globulin (2.3-3.5) g/dL Albumin/Globulin Ratio (1.2-2.2) Meds: Medications Discontinued Medications Generic Name Dose Route Start Last Admin Trade Name Brittani PRN Reason Stop Dose Admin Sodium Chloride 100 mls @ 3 mls/sec 06/04/17 10:15 06/04/17 10:41 Normal Saline IV 4 mls/sec ASDIRECTED REGGIE Administration Iopamidol 100 ml 06/04/17 10:15 06/04/17 10:41 [id number] (76%) IV 100 ml . DIRECTED REGGIE Administration - Re-Assessments/Exams Free Text/Narrative Re-Assessment/Exam: 06/04/17 11:41 pt had a angio of the chest which showed a small pleural effusion and a large pericardal effusion. . He has been recently treated for pericarditis. He had a ekg today which showed low voltage but did not have some of the previous changes. He has a crp of 12 and greater. He is in a controlled atrial fib. 06/04/17 11:43 Departure - Departure Time of Disposition: 11:45 Disposition: DC/Tfer to Acute Hospital 02 Condition: Fair Clinical Impression: Pericardial effusion without cardiac tamponade, Pericarditis, History of liver disease - Discharge Information Referrals: PCP,None [Primary Care Provider] - Forms: ED Department Discharge Care Plan Goals: transfer to [facility]. - My Orders Last 24 Hours: My Active Orders 06/04/17 09:05 EKG Documentation Completion [RC] ASDIRECTED EKG 12 Lead [EK] Routine 06/04/17 09:06 UA W/MICROSCOPIC [URIN] Urgent - Assessment/Plan Last 24 Hours: My Active Orders 06/04/17 09:05 EKG Documentation Completion [RC] ASDIRECTED EKG 12 Lead [EK] Routine 06/04/17 09:06 UA W/MICROSCOPIC [URIN] Urgent
--- NOTE | 2017-06-04 10:10 | CR ---
Two-view chest Comparison: August 2015. There is mild hyperinflation. There is mild chronic scarring in the left lung base. There are no infi ltrates. There are no significant effusions. Impression: 1. Stable exam. No acute findings.
[2017-06-04] MEDS ORDERED: Sodium Chloride 0.9% 100 ML IV SCH (10:15)
[2017-06-04] MEDS ORDERED: Iopamidol 755 Mg/ML 100 ML Bottle IV SCH (10:15)
--- NOTE | 2017-06-04 11:00 | CT ---
Ang Chest HISTORY: Shortness of breath and chest pain. COMPARISON: The lower chest is visualized on the abdominal CT from 22 April 2017. TECHNIQUE: Intravenous contrast was administered, followed by axial imaging from the lung apices exte nding through the hemidiaphragms. 3D Coronal and/or sagittal MIP reconstructions were obtained and re viewed. Total DLP: 501. FINDINGS: The central and segmental pulmonary arteries are well-opacified. There are no filling defec ts. There is no vessel truncation. There are no findings of pulmonary embolism. There has been interval development of a moderate-large pericardial effusion. The fluid collection ar ound the heart measures 2.4 cm in thickness. There is no cardiomegaly. The pericardium appears non th ickened. There has been interval development of a small left pleural effusion. A small right pleural effusion has resolved since the prior study. There are no alveolar infiltrates. Limited evaluation of the upper abdomen demonstrates no acute findings. Impression: 1. Interval development of moderate-large pericardial effusion. 2. No evidence for pulmonary embolism. 3. Small left pleural effusion.
== END 2017-06-04 12:41 ==
LOC: JP.ED 08:17
DX: I31.3 Pericardial effusion (noninflammatory) (principal); I10 Essential (primary) hypertension; Z88.5 Allergy status to narcotic agent; Z79.899 Other long term (current) drug therapy; Z79.01 Long term (current) use of anticoagulants; Z87.891 Personal history of nicotine dependence
CPT/HCPCS: 36415; 71046; 71275; 80053; 83880; 84484; 85025; 86140; 93005; 99285; J7030; Q9967

== ENCOUNTER 2017-10-24 18:08 | Emergency (ER) | payer MEDICARE, BC ==
[2017-10-24 18:32] VITALS: BP 132/80
--- NOTE | 2017-10-24 19:20 | EDM.PDOC ---
ED HPI GENERAL MEDICAL PROBLEM - General Chief Complaint: General Stated Complaint: VOMITING Time Seen by Provider: 10/24/17 18:50 Source of Information: Reports: Patient, Family History Limitations: Reports: No Limitations - History of Present Illness INITIAL COMMENTS - FREE TEXT/NARRATIVE: 76-year-old male who woke up this morning with generalized malaise, aching, felt feverish and nauseated. He had several episodes of emesis, the last one was 7 hours ago. He is now feeling somewhat better, he has no shortness of breath or cough. No rashes, joint pains or tick bites he knows of. No exposure to illness he knows of. No urinary symptoms. Denies diarrhea. Onset: Gradual Severity: Moderate Associated Symptoms: Reports: Fever/Chills, Malaise, Nausea/Vomiting, Weakness. Denies: Chest Pain, Cough, Headaches, Shortness of Breath - Related Data Allergies Allergy/AdvReac Type Severity Reaction Status Date / Time hydromorphone [From Dilaudid] AdvReac Nausea and Verified 10/24/17 18:36 Vomiting morphine AdvReac Nausea and Verified 10/24/17 18:36 Vomiting Home Meds: Home Meds metroNIDAZOLE [metroNIDAZOLE 0.75% Gel] 1 dose TOP BID 08/17/16 [History] Potassium Citrate [Potassium Citrate ER] 10 meq PO DAILY 04/05/17 [History] Pantoprazole Sodium [Protonix] 20 mg PO DAILY 05/18/17 [History] Amiodarone HCl [Pacerone] 200 mg PO DAILY 06/04/17 [History] Losartan Potassium 25 mg PO DAILY 06/04/17 [History] Warfarin Sodium 1 tab PO DAILY 06/04/17 [History] Metoprolol Tartrate 75 mg PO BID 10/24/17 [History] Tiotropium [Spiriva Handihaler] 1 cap INH DAILY 10/24/17 [History] Past Medical History HEENT History: Reports: Cataract, Impaired Vision, Otitis Media, Sinusitis Cardiovascular History: Reports: Afib, Hypertension Respiratory History: Reports: COPD, SOB Gastrointestinal History: Reports: Cholelithiasis, Diverticulosis, GERD, Hiatal Hernia Genitourinary History: Reports: Prostate Disorder, Renal Calculus Musculoskeletal History: Reports: None Neurological History: Reports: None Psychiatric History: Reports: None Endocrine/Metabolic History: Reports: Obesity/BMI 30+ Hematologic History: Reports: None Immunologic History: Reports: None Oncologic (Cancer) History: Reports: Basal Cell Carcinoma, Prostate, Other (See Below) Other Oncologic History: skin Dermatologic History: Reports: Benign Melanoma, Melanoma, Other (See Below) Other Dermatologic History: skin ca basal - Infectious Disease History Infectious Disease History: Reports: Chicken Pox, Measles, Mumps - Past Surgical History HEENT Surgical History: Reports: Cataract Surgery, Other (See Below) GI Surgical History: Reports: Cholecystectomy, Colonoscopy, Other (See Below) Other GI Surgeries/Procedures: Abdomenal surgery. Bile duct drain. Male Surgical History: Reports: Kidney Stone Extraction, Prostatectomy, Renal Calculus Endocrine Surgical History: Reports: None Neurological Surgical History: Reports: None Musculoskeletal Surgical History: Reports: None Dermatological Surgical History: Reports: Skin Biopsy Social & Family History - Family History Family Medical History: Noncontributory : Reports: Renal Calculus - Tobacco Use Smoking Status *Q: Never Smoker - Caffeine Use Caffeine Use: Reports: Coffee, Soda Caffeine Use Comment: drinks 1 cup/day - Recreational Drug Use Recreational Drug Use: No ED ROS GENERAL - Review of Systems Review Of Systems: See Below Constitutional: Reports: Fever, Chills, Malaise, Weakness, Decreased Appetite HEENT: Reports: No Symptoms Respiratory: Reports: Other (Does have COPD but that is baseline, unchanged). Denies: Shortness of Breath, Cough Cardiovascular: Denies: Chest Pain, Palpitations GI/Abdominal: Reports: Nausea, Vomiting. Denies: Abdominal Pain, Diarrhea Skin: Reports: Diaphoresis Neurological: Denies: Headache Psychiatric: Reports: No Symptoms ED EXAM, GENERAL - Physical Exam Exam: See Below Exam Limited By: No Limitations General Appearance: Alert, No Apparent Distress Eye Exam: Bilateral Eye: Normal Inspection (No jaundice, normal hydration) Throat/Mouth: Normal Inspection Head: Atraumatic Neck: Supple Respiratory/Chest: No Respiratory Distress, Other (Chronic sounding basilar rales bilaterally) Cardiovascular: Regular Rate, Rhythm. No: Extra Beats GI/Abdominal: Normal Bowel Sounds, Soft, Non-Tender Extremities: No: Pedal Edema Neurological: Alert, Oriented Psychiatric: Normal Affect, Normal Mood Skin Exam: Warm, Dry Course - Vital Signs Last Recorded V/S: Last Vital Signs Temp 100.3 F 10/24/17 18:40 Pulse 110 H 10/24/17 18:40 Resp 16 07/15/18 18:40 BP 132/80 10/24/17 18:40 Pulse Ox 95 10/24/17 18:40 - Orders/Labs/Meds Orders: Active Orders 24 hr Category Date Time Status E. CHAFFEENSIS-HME (MONOCYTIC) Stat Lab 10/24/17 19:46 Received LYME, TOTAL AB TEST/REFLEX Stat Lab 10/24/17 19:46 Received Labs: Laboratory Tests 10/24/17 10/24/17 Range/Units 19:15 19:15 WBC 5.7 (4.5-11.0) K/uL RBC 5.32 (4.30-5.90) M/uL Hgb 16.2 H D (12.0-15.0) g/dL Hct 49.3 (40.0-54.0) % MCV 93 (80-98) fL MCH 31 (27-31) pg MCHC 33 (32-36) % Plt Count 135 L (150-400) K/uL Neut % (Auto) 89 H (36-66) % Lymph % (Auto) 5 L (24-44) % Swift % (Auto) 6 (2-6) % Eos % (Auto) 0 L (2-4) % Baso % (Auto) 0 (0-1) % Sodium 136 L (140-148) mmol/L Potassium 4.5 (3.6-5.2) mmol/L Chloride 104 (100-108) mmol/L Carbon Dioxide 24 (21-32) mmol/L Anion Gap 12.5 (5.0-14.0) mmol/L BUN 14 (7-18) mg/dL Creatinine 1.3 (0.8-1.3) mg/dL Est Cr Clr Drug Dosing 58.68 mL/min Estimated GFR (MDRD) 54 L (>60) Glucose 113 H (74-106) mg/dL Calcium 8.2 L (8.5-10.1) mg/dL Total Bilirubin 0.7 (0.2-1.0) mg/dL AST 15 (15-37) U/L ALT 25 (12-78) U/L Alkaline Phosphatase 102 (46-116) U/L Total Protein 6.2 L (6.4-8.2) g/dL Albumin 3.0 L (3.4-5.0) g/dL Globulin 3.2 (2.3-3.5) g/dL Albumin/Globulin Ratio 0.9 L (1.2-2.2) - Re-Assessments/Exams Free Text/Narrative Re-Assessment/Exam: 10/24/17 19:19 CBC and CMP were obtained. 10/24/17 19:50 White count was normal, hemoglobin normal. Platelets were slightly low but LFTs were normal and chemistry profile is reassuring. Patient is feeling much better without any treatment, his fevers gone. Tick disease tests were added, he'll be informed of the results when available and he'll return sooner if worsening. No treatment at this time. Departure - Departure Time of Disposition: 20:12 Disposition: Home, Self-Care 01 Condition: Good Clinical Impression: Viral syndrome - Discharge Information Instructions: Viral Illness, Adult Referrals: Brayden Zamarripa MD [Primary Care Provider] - Forms: ED Department Discharge Care Plan Goals: Continue with Tylenol as needed for fever or body aches, increase diet as tolerated and return if worsening at any time. Also consider rechecking in 2-3 days if not improving satisfactorily. We will be in touch with you with lab results when available. - My Orders Last 24 Hours: My Active Orders 10/24/17 19:46 E. CHAFFEENSIS-HME (MONOCYTIC) Stat LYME, TOTAL AB TEST/REFLEX Stat - Assessment/Plan Last 24 Hours: My Active Orders 10/24/17 19:46 E. CHAFFEENSIS-HME (MONOCYTIC) Stat LYME, TOTAL AB TEST/REFLEX Stat
== END 2017-10-24 20:05 | disposition home or self-care (01) ==
LOC: JP.ED 18:08
DX: B34.9 Viral infection, unspecified (principal); I48.91 Unspecified atrial fibrillation; I10 Essential (primary) hypertension; Z88.5 Allergy status to narcotic agent; Z79.01 Long term (current) use of anticoagulants; Z79.899 Other long term (current) drug therapy
CPT/HCPCS: 36415; 80053; 85025; 86666; 86666-59; 99284

== ENCOUNTER 2019-09-29 07:41 | Day surgery (SDC) | payer MEDICARE ==
[~2019-09-29 07:41] MED LIST: Midazolam 1 MG/ML 2 ML SDV ONE; Propofol 200 MG/20 ML SDV ONE; fentaNYL 100 MCG/2 ML SDV ONE
[2019-09-29] MEDS ORDERED: Sodium Chloride 0.9% 1,000 ML IV SCH (08:30)
[2019-09-29 10:02] VITALS: BP 143/83; PULSE 61
--- NOTE | 2019-09-29 11:55 | OR ---
DATE OF PROCEDURE: 09/29/2019 SURGEON: George Tejada MD PROCEDURE: Colonoscopy. FINDINGS: 1. Transverse colon polyp, approximately 5 mm, completely removed using cold biopsy forceps. 2. Sessile-type polyp, approximately 2 cm distal to the cecum and ascending colon, elevated using Latrice Ink technique and completely removed using hot snare wire device. COMPLICATIONS: None. LABORATORY MECHANICAL TECHNICIAN: None. PREOPERATIVE DIAGNOSIS: Family history of colorectal cancer/history of polyps. POSTOPERATIVE DIAGNOSIS: Family history of colorectal cancer/history of polyps. RISKS: Risks, benefits, alternatives, and limitations including, but not limited to infection, bleeding, perforation, false positives and false negatives were all explained to the patient, who wished to proceed. PROCEDURE IN DETAIL: The patient was placed in left lateral decubitus position. Digital rectal exam was performed without abnormality. Scope was introduced and advanced atraumatically to the ileocecal valve within the cecum. Approximately 2 cm distal to this, there was a sessile type polyp. Using Latrice Ink as an elevator, this was then further elevated and dissected using the ink as a hydrodissection. The wire was then used to transect and completely remove the polyp. This was sent to pathology. No remaining polyp was noted, and there was no evidence of perforation. Scope was brought back into the transverse colon where an additional polyp was identified and completely removed using cold biopsy forceps. Scope was brought back through the remainder of the colon. The patient had some diverticulosis, which was described as mild, limited to sigmoid colon without evidence of diverticulitis or bleeding. His prep was marginal as he did have a decent amount of solid stool remaining. No abnormalities on retroflexion. The patient tolerated the procedure well. George Tejada MD /[id number]
== END 2019-09-29 10:32 | disposition home or self-care (01) ==
LOC: JP.SDS 07:41
PROVIDERS: ATTEND Surgery
DX: Z12.11 Encounter for screening for malignant neoplasm of colon (principal); D12.3 Benign neoplasm of transverse colon; D12.2 Benign neoplasm of ascending colon; K57.30 Diverticulosis of large intestine without perforation or abscess without bleeding; I10 Essential (primary) hypertension; K21.9 Gastro-esophageal reflux disease without esophagitis; E66.9 Obesity, unspecified; Z86.010 Personal history of colon polyps; Z80.0 Family history of malignant neoplasm of digestive organs; Z87.891 Personal history of nicotine dependence; Z98.890 Other specified postprocedural states; Z68.34 Body mass index [BMI] 34.0-34.9, adult
CPT/HCPCS: 45380; 45381; 45385; 88305; J2250; J2704; J3010; J7030

== ENCOUNTER 2021-07-29 11:52 | Emergency (ER) | payer MEDICARE ==
[2021-07-29] MEDS ORDERED: Lactated Ringers 1,000 ML IV SCH (12:15)
[2021-07-29] MEDS ORDERED: Acetaminophen 325 MG Tab PO ONE (12:18)
[2021-07-29 14:20] LABS: CORONAVIRUS COVID-19 NAA POSITIVE (NEGATIVE)
[2021-07-29 15:24] VITALS: BP 108/59; PULSE 96
== END 2021-07-29 15:56 | disposition home or self-care (01) ==
LOC: JP.ED 11:52
DX: B34.9 Viral infection, unspecified (principal); I48.91 Unspecified atrial fibrillation; I10 Essential (primary) hypertension; J44.9 Chronic obstructive pulmonary disease, unspecified; E66.9 Obesity, unspecified; Z68.34 Body mass index [BMI] 34.0-34.9, adult; Z88.5 Allergy status to narcotic agent; Z79.899 Other long term (current) drug therapy; Z87.891 Personal history of nicotine dependence; Z20.822 Contact with and (suspected) exposure to COVID-19
CPT/HCPCS: 0241U; 36415; 71045; 71045-26; 80053; 81001; 83605; 84145; 85025; 85610; 86140; 87040; 87086; 99282; 99284-25; A9270-GY; J7120

== ENCOUNTER 2022-12-06 20:14 | Emergency (ER) | payer MEDICARE ==
[2022-12-06 21:14] LABS: APPEARANCE,URINE TURBID (CLEAR); BILIRUBIN,URINE SMALL (NEGATIVE); COLOR,URINE BROWN (YELLOW); GLUCOSE,URINE NEGATIVE (NEGATIVE); KETONES,URINE TRACE mg/dL (NEGATIVE); LEUKOCYTE ESTERASE,URINE SMALL (NEGATIVE); NITRITE,URINE NEGATIVE (NEGATIVE); OCCULT BLOOD,URINE LARGE (NEGATIVE); PH,URINE 5.5 (5.0-8.0); PROTEIN,URINE 100 mg/dL (NEGATIVE)
[2022-12-06 21:35] LABS: AMORPHOUS SEDIMENT,URINE MANY; BACTERIA,URINE FEW; EPITHELIAL CELLS,URINE RARE; MUCUS,URINE RARE; RBC,URINE PACKED (0-5)
[2022-12-06 21:54] LABS: INR 2.3; PROTHROMBIN TIME 22.2 sec (9.2-10.6)
[2022-12-06 23:02] VITALS: BP 126/79; PULSE 73
== END 2022-12-06 23:00 | disposition home or self-care (01) ==
LOC: JP.ED 20:14
DX: N20.2 Calculus of kidney with calculus of ureter (principal); R31.0 Gross hematuria; I48.91 Unspecified atrial fibrillation; I10 Essential (primary) hypertension; J44.9 Chronic obstructive pulmonary disease, unspecified; E66.9 Obesity, unspecified; Z88.5 Allergy status to narcotic agent; Z79.899 Other long term (current) drug therapy; Z79.01 Long term (current) use of anticoagulants; Z86.16 Personal history of COVID-19; Z68.34 Body mass index [BMI] 34.0-34.9, adult
CPT/HCPCS: 36415; 74176; 81001; 85610; 99284

== ENCOUNTER 2024-01-17 08:40 | Emergency (ER) | payer MEDICARE ==
[2024-01-17 09:05] VITALS: BP 105/75; PULSE 88
[2024-01-17 09:52] LABS: BASOPHILS ABSOLUTE AUTO 0.04 K/uL (0.00-0.10); BASOPHILS PERCENT AUTO 0.4 % (0.1-1.3); EOSINOPHILS ABSOLUTE AUTO 0.03 K/uL (0.00-0.40); EOSINOPHILS PERCENT AUTO 0.3 % (0.0-5.4); HEMATOCRIT 46.1 % (38.4-49.7); HEMOGLOBIN 15.8 g/dL (12.9-16.9); IMMATURE GRAN ABSOLUTE AUTO 0.03 K/uL (0.00-0.23); IMMATURE GRAN PERCENT AUTO 0.3 % (0.0-0.7); LYMPHOCYTES ABSOLUTE AUTO 0.51 K/uL (0.8-3.3); LYMPHOCYTES PERCENT AUTO 5.2 % (11.4-47.7); MEAN CORPUSCULAR HEMOGLOBIN 32.1 pg (31.6-35.5); MEAN CORPUSCULAR HGB CONC 34.3 g/dL (31.6-35.5); MEAN CORPUSCULAR VOLUME 93.7 fL (81.4-99.0); MONOCYTES ABSOLUTE AUTO 0.59 K/uL (0.20-0.90); NEUTROPHILS PERCENT AUTO 87.8 % (40.0-78.1); PLATELET COUNT,PLT 153 K/uL (130-375); RED BLOOD CELL COUNT 4.92 M/uL (4.14-5.76); WHITE BLOOD CELL COUNT,WBC 9.8 K/uL (3.2-11.0)
[2024-01-17 10:08] LABS: ANION GAP 5.9 mmol/L (5.0-14.0); CALCIUM 8.7 mg/dL (8.5-10.1); CREATININE 1.3 mg/dL (0.8-1.3); EST CRCL DRUG DOSING (CG) 52.36 mL/min; POTASSIUM,K 4.8 mmol/L (3.6-5.2)
[2024-01-17 10:18] LABS: LACTIC ACID 1.1 mmol/L (0.4-2.0)
[2024-01-17 12:05] LABS: INFLUENZA A NAA NEGATIVE (NEGATIVE); INFLUENZA B NAA NEGATIVE (NEGATIVE); RESPIRATORY SYNCYTIAL VIR NAA NEGATIVE (NEGATIVE)
[2024-01-17 12:09] LABS: CORONAVIRUS COVID-19 NAA POSITIVE (NEGATIVE)
== END 2024-01-17 12:33 | disposition home or self-care (01) ==
LOC: JP.ED 08:40
DX: U07.1 COVID-19 (principal); I10 Essential (primary) hypertension; K21.9 Gastro-esophageal reflux disease without esophagitis; E66.9 Obesity, unspecified; Z86.16 Personal history of COVID-19; Z90.49 Acquired absence of other specified parts of digestive tract; Z87.891 Personal history of nicotine dependence; Z79.899 Other long term (current) drug therapy; Z88.5 Allergy status to narcotic agent
CPT/HCPCS: 0241U; 36415; 71045; 80048; 83605; 85025; 99285